=== PATIENT | female | born 1965 | race African-American/Black ===

== ENCOUNTER 2017-06-04 10:42 | Outpatient (CLI) | payer MEDICARE, MEDICAID ==
--- NOTE | 2017-06-04 12:59 | RAD ---
TWO VIEWS OF THE CHEST: COMPARISON: 12/31/06. HISTORY: Fall with chest pain. FINDINGS: Two views of the chest show normal sized cardiomediastinal silhouette. There is no evidence of conso lidation, mass, or pleural effusion. Degenerative changes are seen in the spine. IMPRESSION: No evidence of acute cardiopulmonary disease. POS: [facility]
--- NOTE | 2017-06-04 13:00 | RAD ---
THREE VIEWS LEFT SHOULDER: COMPARISON: None. HISTORY: Left shoulder pain after a fall. FINDINGS: Three views left shoulder show no evidence of acute fracture or dislocation. No degenerative change s are seen. No soft tissue swelling is present. IMPRESSION: Unremarkable exam. POS: [facility]
== END 2017-06-04 10:43 | disposition home or self-care (01) ==
LOC: RAD-FRANK 10:42
PROVIDERS: ATTEND Internal Medicine
DX: S49.92XA Unspecified injury of left shoulder and upper arm, initial encounter (principal); R07.81 Pleurodynia
CPT/HCPCS: 71020

== ENCOUNTER 2018-03-27 14:20 | Outpatient (CLI) | payer MEDICARE, OTHER ==
--- NOTE | 2018-03-27 14:39 | RAD ---
FOUR VIEWS OF THE RIGHT KNEE: Comparison: None. History: Right knee pain. FINDINGS: Four views of the right knee shows no evidence of acute fracture or dislocation. No degenerative johnson ges are seen. No knee effusion is present. IMPRESSION: No evidence of acute osseous abnormality. POS: [facility]
== END 2018-03-27 14:21 | disposition home or self-care (01) ==
LOC: RAD-FRANK 14:20
PROVIDERS: ATTEND Internal Medicine
DX: M25.561 Pain in right knee (principal)

== ENCOUNTER 2018-05-07 20:30 | Outpatient (CLI) | payer MEDICARE, MEDICAID | END 2018-05-07 20:31 | disposition home or self-care (01) | LOC: SLEEPLAB 20:30 | PROVIDERS: ATTEND Internal Medicine Cardiovascular Disease | DX: G47.33 Obstructive sleep apnea (adult) (pediatric) (principal); R53.83 Other fatigue; I10 Essential (primary) hypertension; E66.9 Obesity, unspecified; Z68.41 Body mass index [BMI] 40.0-44.9, adult | CPT/HCPCS: 95811 ==

== ENCOUNTER 2018-05-16 09:48 | Outpatient (CLI) | payer MEDICAID, MEDICARE, OTHER | END 2018-05-16 09:49 | disposition home or self-care (01) | LOC: BICMAMMO 09:48 | PROVIDERS: ATTEND Internal Medicine Medical Oncology | DX: Z08 Encounter for follow-up examination after completed treatment for malignant neoplasm (principal); Z85.3 Personal history of malignant neoplasm of breast; Z80.3 Family history of malignant neoplasm of breast | CPT/HCPCS: 77066; G0279 ==

== ENCOUNTER 2018-09-26 11:35 | Outpatient (CLI) | payer MEDICARE, MEDICAID ==
--- NOTE | 2018-09-26 13:43 | RAD ---
AP AND LATERAL VIEWS CHEST: 09/26/2018 HISTORY: Dyspnea. COMPARISON: 03/08/2015 FINDINGS: Two views of the chest are obtained and demonstrate mild pulmonary vascular congestion. No evidence of effusions, pneumonia, or pneumothorax is seen. IMPRESSION: Pulmonary vascular congestion; otherwise unremarkable two views chest. POS: [facility]
== END 2018-09-26 11:36 | disposition home or self-care (01) ==
LOC: RAD 11:35
PROVIDERS: ATTEND Internal Medicine Pulmonary Disease
DX: R06.00 Dyspnea, unspecified (principal); R09.89 Other specified symptoms and signs involving the circulatory and respiratory systems
CPT/HCPCS: 71046

== ENCOUNTER 2018-11-05 09:51 | Emergency (ER) | payer MEDICARE, MEDICAID ==
[2018-11-05 10:42] LABS: Bilirubin Negative (Negative); Blood, Urine Negative (Negative); Clarity CLEAR (Clear); Glucose, Urine (Dipstick) Negative (Negative); Leukocyte Small (Negative); Nitrite Negative (Negative); Protein, Urine (Dipstick) Negative (Neg-Trace); Specific Gravity, Urine 1.012 (1.002-1.036); Urobilinogen 0.2 mg/dL (0.2-1.0); pH, Urine 5.5 (5.0-9.0)
[2018-11-05 10:44] LABS: Bacteria/HPF Rare-Few HPF (None Seen); Hyaline Casts/LPF 0-3 HYALINE CAST LPF (0-3 Hyaline); Pathc Cast-AUWi Flag 0.87 (0-2.49); RBC/HPF 0-3 HPF (0-3)
== END 2018-11-05 13:30 | disposition home or self-care (01) ==
LOC: ERS 09:51
DX: R51 Headache (principal); E11.9 Type 2 diabetes mellitus without complications; E78.5 Hyperlipidemia, unspecified; I10 Essential (primary) hypertension; M19.90 Unspecified osteoarthritis, unspecified site; K21.9 Gastro-esophageal reflux disease without esophagitis; Z79.84 Long term (current) use of oral hypoglycemic drugs; Z87.891 Personal history of nicotine dependence; Z79.899 Other long term (current) drug therapy
CPT/HCPCS: 36415; 81003; 81015; 85652; 87086; 99284

== ENCOUNTER 2018-11-06 08:32 | Outpatient (CLI) | payer MEDICARE, MEDICAID ==
--- NOTE | 2018-11-06 10:48 | CT ---
CT ABDOMEN WITH AND WITHOUT IV CONTRAST UTILIZING A LIVER MASS PROTOCOL: INDICATIONS: Report of a liver mass, identified on an outside ultrasound that was unavailable for review. COMPARISON: Prior CT of the abdomen and pelvis, dated 03/22/2010, from [facility]. Prior CT abdomen and pelvis, dated 04/27/2019. CONTRAST: Isovue-370 70 mL. FINDINGS: There is a stable small hiatal hernia. There is a small calcified lymph node within the lower death surveys coder ior mediastinum, which is stable. The lung bases are otherwise clear. The gallbladder is surgically absent. No focal hepatic lesion is identified. Mildly prominent parapancreatic and portocaval lymph nodes are stable to the comparison in 2009. The parapancreatic lymph node on image 23 of series 5 measures 1.3 cm. The portocaval lymph node measur es 1.4 cm. The liver measures 19.6 cm in its greatest longitudinal dimension, which is slightly more prominent than seen on the 2009 examination. No focal pancreatic lesion, adrenal lesion, or splenic lesion is identified. No free fluid is eviden t. No definite acute osseous abnormality is identified. There is advanced disk degenerative disease at L5-S1 again noted. IMPRESSION: 1. No focal hepatic lesion identified. 2. Mildly prominent lymph nodes within the portocaval and parapancreatic region have been stable sin ce 2009 and are likely benign. 3. Cholecystectomy. 4. Worsening mild hepatomegaly. 5. Other chronic findings as above. POS: [facility]
== END 2018-11-06 08:33 | disposition home or self-care (01) ==
LOC: BICCT 08:32
PROVIDERS: ATTEND Internal Medicine Gastroenterology
DX: R16.0 Hepatomegaly, not elsewhere classified (principal); M51.37 Other intervertebral disc degeneration, lumbosacral region; K44.9 Diaphragmatic hernia without obstruction or gangrene; Z90.49 Acquired absence of other specified parts of digestive tract
CPT/HCPCS: 74170

== ENCOUNTER 2018-11-07 09:06 | Outpatient (CLI) | payer MEDICARE, MEDICAID ==
--- NOTE | 2018-11-07 10:39 | RAD ---
FOUR VIEWS RIGHT KNEE: Comparison: 03-27-18 History: Right knee pain. FINDINGS: Four views of the right knee shows no evidence of acute fracture or dislocation. No significant degen erative changes are seen. No knee effusion is seen. Patellar enthesophytes are again incidentally not ed. IMPRESSION: No evidence of acute osseous abnormality. POS: [facility]
== END 2018-11-07 09:07 | disposition home or self-care (01) ==
LOC: RAD-FRANK 09:06
PROVIDERS: ATTEND Internal Medicine
DX: M25.561 Pain in right knee (principal)

== ENCOUNTER 2018-12-01 02:10 | Emergency (ER) | payer MEDICARE, MEDICAID ==
[2018-12-01] MEDS ORDERED: Ondansetron ODT 4 MG TAB ONE (02:43)
== END 2018-12-01 03:18 | disposition home or self-care (01) ==
LOC: ERS 02:10
DX: F10.129 Alcohol abuse with intoxication, unspecified (principal); E11.9 Type 2 diabetes mellitus without complications; E78.5 Hyperlipidemia, unspecified; K21.9 Gastro-esophageal reflux disease without esophagitis; M19.90 Unspecified osteoarthritis, unspecified site; I10 Essential (primary) hypertension
CPT/HCPCS: 99284; Q0162

== ENCOUNTER 2019-06-18 10:12 | Outpatient (CLI) | payer MEDICARE, OTHER ==
--- NOTE | 2019-06-18 11:18 | RAD ---
PA AND LATERAL VIEWS CHEST: Date: 06/18/19 HISTORY: Shortness of breath. FINDINGS: Comparison made with exam of 09/26/18. The heart size is normal. The aorta is tortuous. The lungs are expanded without lobar consolidation, pneumothoraces, or pleural effusions. There are degenerative changes in the spine. IMPRESSION: No acute process. POS: [facility]
== END 2019-06-18 10:13 | disposition home or self-care (01) ==
LOC: RAD-FRANK 10:12
PROVIDERS: ATTEND Nurse Practitioner Family
DX: R06.02 Shortness of breath (principal); Z87.09 Personal history of other diseases of the respiratory system
CPT/HCPCS: 71046

== ENCOUNTER 2019-06-19 10:31 | Outpatient (CLI) | payer MEDICARE, OTHER ==
--- NOTE | 2019-06-19 11:20 | MMO ---
Bilateral MAMMO Bilat Diag DDI+JO. CLINICAL HISTORY: Patient is 54 years old and is seen for diagnostic exam. The patient has no family history of breast cancer. The patient has a history of malignant (generic) at age 51. VIEWS: The views performed were: bilateral craniocaudal with tomosynthesis; bilateral mediolateral oblique with tomosynthesis; and bilateral mediolateral with tomosynthesis. FILMS COMPARED: The present examination has been compared to a prior imaging study performed at [facility] on 05/16/2018. This study has been interpreted with the assistance of computer-aided detection. MAMMOGRAM FINDINGS: There are scattered fibroglandular densities. There are stable left sided post-operative changes. Right breast nodule is stable. There are no suspicious masses, suspicious calcifications, or new areas of architectural distortion. IMPRESSION: THERE IS NO MAMMOGRAPHIC EVIDENCE OF MALIGNANCY. A ROUTINE FOLLOW-UP MAMMOGRAM IN 1 YEAR IS RECOMMENDED. THE RESULTS OF THIS EXAM WERE SENT TO THE PATIENT. ACR BI-RADS Category 2 - Benign finding MAMMOGRAPHY NOTE: 1. A negative mammogram report should not delay a biopsy if a dominant of clinically suspicious mass is present. 2. Approximately 10% to 15% of breast cancers are not detected by mammography. 3. Adenosis and dense breasts may obscure an underlying neoplasm. Reported by: MELANY ELIZONDO MD Electonically Signed: [id number]
== END 2019-06-19 10:32 | disposition home or self-care (01) ==
LOC: BICMAMMO 10:31
PROVIDERS: ATTEND Internal Medicine Medical Oncology
DX: Z08 Encounter for follow-up examination after completed treatment for malignant neoplasm (principal); Z85.3 Personal history of malignant neoplasm of breast
CPT/HCPCS: 77066; G0279

== ENCOUNTER 2019-09-01 18:59 | Emergency (ER) | payer MEDICARE, MEDICAID ==
[2019-09-01] MEDS ORDERED: Morphine 4 MG/ML VIAL ONE (20:40)
[2019-09-01] MEDS ORDERED: Ondansetron PF 4 MG/2 ML Vial ONE (20:40)
[2019-09-01 20:42] LABS: ALT (SGPT) 10 U/L (8-55); AST (SGOT) 14 U/L (5-34); Albumin 3.7 g/dL (3.5-5.0); Alkaline Phosphatase 92 U/L (40-110); Anion Gap 14 mmol/L (10-20); BUN (Urea Nitrogen) 9 mg/dL (9.8-20.1); Bilirubin, Total 0.3 mg/dL (0.2-1.2); Calc. Creatinine Clearance 0 mL/min (70-130); Calcium 8.6 mg/dL (7.8-10.44); Carbon Dioxide 20 mmol/L (22-29); Chloride 110 mmol/L (98-107); Estimated GFR-MDRD 85; Globulin 3.5 g/dL (2.4-3.5); Glucose 123 mg/dL (70-105); Potassium 3.9 mmol/L (3.5-5.1); Protein, Total 7.2 g/dL (6.0-8.3); Sodium 140 mmol/L (136-145)
[2019-09-01 20:43] LABS: Bilirubin Negative (Negative); Blood, Urine Negative (Negative); Clarity Clear (Clear); Glucose, Urine (Dipstick) Normal (Negative); Leukocyte Negative Leu/uL (Negative); Nitrite Negative (Negative); Protein, Urine (Dipstick) Negative (Neg-Trace)
[2019-09-01] MEDS ORDERED: HYDROcodone/Acetaminophen 5/325 mg Tablet ONE (20:44)
[2019-09-01 21:31] LABS: Hemoglobin 10.5 g/dL (12.0-16.0); Mean Corpuscular HGB CONC 32.5 g/dL (32.0-36.0); Mean Corpuscular Hemoglobin 25.7 pg (27.0-31.0); Mean Corpuscular Volume 79.2 fL (78.0-98.0); RBC Distribution Width 13.5 % (11.5-14.5); Red Blood Cell (RBC) Count 4.07 mill/uL (4.20-5.40)
[2019-09-01 21:37] LABS: Band 8 % (5-11); Eosinophils 1 % (0-10); Lymphocytes 30 % (21-51); MDiff Complete? YES; Monocytes 5 % (0-10); Neutrophil 56 % (42-75); Platelet Count 193 thou/uL (130-400); White Blood Cell (WBC) Count 6.1 thou/uL (4.8-10.8)
== END 2019-09-01 21:51 | disposition home or self-care (01) ==
LOC: ERS 18:59
DX: E11.65 Type 2 diabetes mellitus with hyperglycemia (principal); M54.9 Dorsalgia, unspecified; K21.9 Gastro-esophageal reflux disease without esophagitis; E78.5 Hyperlipidemia, unspecified; E78.00 Pure hypercholesterolemia, unspecified; I10 Essential (primary) hypertension; M79.7 Fibromyalgia; M19.90 Unspecified osteoarthritis, unspecified site; Z87.891 Personal history of nicotine dependence
CPT/HCPCS: 36415; 36416; 80053; 81003; 85025; 96360; J2270; J2405

== ENCOUNTER 2020-09-06 21:09 | Emergency (ER) | payer MEDICARE, MEDICAID ==
[2020-09-07] MEDS ORDERED: Fluorescein Opthalmic Strip ONE (01:05)
[2020-09-07] MEDS ORDERED: Proparacaine 0.5% Opth 15 ML BOT ONE (01:05)
[2020-09-07] MEDS ORDERED: traMADol HCl 50 MG TAB ONE (02:09)
== END 2020-09-07 02:05 | disposition home or self-care (01) ==
LOC: ERS 21:09
DX: H10.502 Unspecified blepharoconjunctivitis, left eye (principal); E11.9 Type 2 diabetes mellitus without complications; K21.9 Gastro-esophageal reflux disease without esophagitis; E78.5 Hyperlipidemia, unspecified; E78.00 Pure hypercholesterolemia, unspecified; I10 Essential (primary) hypertension; M19.90 Unspecified osteoarthritis, unspecified site; Z87.891 Personal history of nicotine dependence
CPT/HCPCS: 99283

== ENCOUNTER 2020-10-16 19:31 | Emergency (ER) | payer MEDICARE, OTHER ==
[~2020-10-16 19:31] MED LIST: Iopamidol-370 76% 500 ML 1 ML ONE
[2020-10-16] MEDS ORDERED: Morphine 4 MG/ML VIAL ONE (19:54)
[2020-10-16 19:58] LABS: #Basophils 0.2 thou/uL (0.0-0.2); #Eosinphils 0.1 thou/uL (0.0-0.7); #Lymphocytes 1.4 thou/uL (1.20-3.40); #Monocytes 0.5 thou/uL (0.11-0.59); #Neutrophils 5.9 thou/uL (1.40-6.50); %Basophils 2.3 % (0.0-1.0); %Eosinophils 0.9 % (0.0-10.0); %Lymphocytes 17.5 % (21.0-51.0); %Monocytes 5.7 % (0.0-10.0); %Neutrophils 73.6 % (42.0-75.0); Hemoglobin 11.7 g/dL (12.0-16.0); Mean Corpuscular HGB CONC 32.6 g/dL (32.0-36.0); Mean Corpuscular Hemoglobin 26.1 pg (27.0-31.0); Mean Platelet Volume 7.2 fL (7.4-10.4); Platelet Count 203 thou/uL (130-400); RBC Distribution Width 13.7 % (11.5-14.5); Red Blood Cell (RBC) Count 4.48 mill/uL (4.20-5.40)
[2020-10-16 20:22] LABS: ALT (SGPT) 10 U/L (8-55); AST (SGOT) 14 U/L (5-34); Albumin 3.5 g/dL (3.5-5.0); Alkaline Phosphatase 100 U/L (40-110); Anion Gap 15 mmol/L (10-20); BUN (Urea Nitrogen) 7 mg/dL (9.8-20.1); Bilirubin, Total 0.4 mg/dL (0.2-1.2); Calc. Creatinine Clearance 0 mL/min (70-130); Calcium 8.1 mg/dL (7.8-10.44); Carbon Dioxide 21 mmol/L (22-29); Chloride 107 mmol/L (98-107); Globulin 3.6 g/dL (2.4-3.5); Glucose 235 mg/dL (70-105); Lipase 14 U/L (8-78); Protein, Total 7.1 g/dL (6.0-8.3); Sodium 140 mmol/L (136-145)
--- NOTE | 2020-10-16 20:26 | CT ---
CT ABDOMEN WITH CONTRAST CT PELVIS WITH CONTRAST: DATE: 10/16/2020 HISTORY: 55-year-old female with abdominal pain, nausea, vomiting, and diarrhea COMPARISON: 04/26/2016 TECHNIQUE: IV injection of iodinated contrast media: administered. Oral contrast media:Not administered FINDINGS: Again noted is the subcarinal and right inferior hilar calcified and noncalcified lymphadenopathy, on ly partially imaged, but unchanged. Lung bases are grossly clear. No pleural effusion. Clips in gallbladder fossa. Small hiatal hernia. Several mildly to moderately enlarged danilo hepatis lymph nodes, unchanged. Essentially normal abdominal aorta, kidneys, adrenals, pancreas, spleen, appendix, and urinary bladde r. No colonic diverticulitis, small bowel dilation, ascites, or pneumoperitoneum. No interval change overall of intra-abdominal and intrapelvic contents. Bilateral L5 pars interarticularis defects causing mild grade 1 anterolisthesis of L5 on S1. Severe d isc space narrowing with vacuum disc phenomenon at L5-S1. Bilateral high-grade L5-S1 neural foraminal stenosis, especially on the left.. IMPRESSION: 1) no acute findings 2) spondylosis at lumbosacral junction: Bilateral L5 spondylolysis causing mild grade 1 spondylolisth esis at L5-S1, high-grade bilateral neural foraminal stenosis, and severe degenerative disc disease at L5-S1. 3) small sliding hiatal hernia. 4) apparently benign lymphadenopathy of danilo hepatis, mediastinum, and right hilum.
[2020-10-16] MEDS ORDERED: diphenhydrAMINE 50 MG/ML VIAL ONE (20:29)
[2020-10-16] MEDS ORDERED: Metoclopramide HCl 10 MG/2 ML VIAL ONE ×2 (20:31→20:39)
--- NOTE | 2020-10-16 20:33 | RAD ---
CHEST ONE VIEW: 10/16/20 INDICATION: Nausea, vomiting, diarrhea and generalized weakness. COMPARISON: Two views of the chest dated 06/18/19. FINDINGS: No definite consolidation, pleural effusion or pneumothorax is evident. Heart size is upper limits of normal. No pneumothorax evident. No acute osseous abnormalities noted. IMPRESSION: No definite acute cardiopulmonary abnormality. POS: [facility]
[2020-10-16 20:37] LABS: Bilirubin Negative (Negative); Blood, Urine Negative (Negative); Clarity Clear (Clear); Glucose, Urine (Dipstick) Normal (Negative); Ketone, Urine Negative (Negative); Leukocyte Negative Leu/uL (Negative); Nitrite Negative (Negative); Protein, Urine (Dipstick) Negative (Neg-Trace); Specific Gravity, Urine 1.019 (1.002-1.036); Urobilinogen Normal mg/dL (Less than 2); pH, Urine 5.5 (5.0-9.0)
[2020-10-16] MEDS ORDERED: Potassium Chloride 20 MEQ TAB ONE (20:39)
== END 2020-10-16 22:15 | disposition home or self-care (01) ==
LOC: ERS 19:31
DX: R10.13 Epigastric pain (principal); R11.2 Nausea with vomiting, unspecified; R53.1 Weakness; E11.9 Type 2 diabetes mellitus without complications; K21.9 Gastro-esophageal reflux disease without esophagitis; E78.5 Hyperlipidemia, unspecified; E78.00 Pure hypercholesterolemia, unspecified; I10 Essential (primary) hypertension
CPT/HCPCS: 36415; 71045; 74177; 80053; 81003; 83690; 84484; 85025; 87086; 93005; 94760; 96365; 96375; J1200; J2270; J2765; Q9967

== ENCOUNTER 2021-01-07 09:48 | Outpatient (CLI) | payer MEDICARE, OTHER | END 2021-01-07 09:49 | disposition home or self-care (01) | LOC: BICMAMMO 09:48 | PROVIDERS: ATTEND Internal Medicine Medical Oncology | DX: C50.512 Malignant neoplasm of lower-outer quadrant of left female breast (principal) | CPT/HCPCS: 77066; G0279 ==

== ENCOUNTER 2021-01-10 05:09 | Emergency (ER) | payer MEDICARE, MEDICAID | END 2021-01-10 05:50 | disposition home or self-care (01) | LOC: ERS 05:09 | DX: K02.9 Dental caries, unspecified (principal); K08.89 Other specified disorders of teeth and supporting structures; I10 Essential (primary) hypertension; E11.9 Type 2 diabetes mellitus without complications; K21.9 Gastro-esophageal reflux disease without esophagitis; E78.5 Hyperlipidemia, unspecified; E78.00 Pure hypercholesterolemia, unspecified; D86.9 Sarcoidosis, unspecified; M19.90 Unspecified osteoarthritis, unspecified site | CPT/HCPCS: 99283 ==

== ENCOUNTER 2021-01-21 08:48 | Outpatient (CLI) | payer MEDICARE, MEDICAID ==
[2021-01-21 18:10] LABS: SARS-CoV-2 PCR by NAA Not Detected (NotDetected)
== END 2021-01-21 08:49 | disposition home or self-care (01) ==
LOC: LABBT 08:48
PROVIDERS: ATTEND Surgery
DX: Z01.812 Encounter for preprocedural laboratory examination (principal); Z20.822 Contact with and (suspected) exposure to COVID-19
CPT/HCPCS: U0003; U0005; 87635

== ENCOUNTER → 2021-01-26 | Day surgery (SDC) | payer MEDICARE, MEDICAID | LOC: SDC 13:03 | PROVIDERS: ATTEND Surgery | DX: K44.9 Diaphragmatic hernia without obstruction or gangrene (principal); K21.9 Gastro-esophageal reflux disease without esophagitis; I10 Essential (primary) hypertension; E11.9 Type 2 diabetes mellitus without complications; E78.5 Hyperlipidemia, unspecified; G89.29 Other chronic pain; M54.5 Low back pain; E66.9 Obesity, unspecified; Z68.41 Body mass index [BMI] 40.0-44.9, adult; Z79.82 Long term (current) use of aspirin; Z79.84 Long term (current) use of oral hypoglycemic drugs; Z79.810 Long term (current) use of selective estrogen receptor modulators (SERMs); Z79.899 Other long term (current) drug therapy; Z88.2 Allergy status to sulfonamides; Z88.6 Allergy status to analgesic agent; Z88.8 Allergy status to other drugs, medicaments and biological substances | CPT/HCPCS: 91010 ==

== ENCOUNTER 2021-02-28 11:05 | Outpatient (CLI) | payer MEDICARE, MEDICAID ==
[2021-02-28 19:45] LABS: SARS-CoV-2 PCR by NAA Not Detected (NotDetected)
== END 2021-02-28 11:06 | disposition home or self-care (01) ==
LOC: LABBT 11:05
PROVIDERS: ATTEND Surgery
DX: Z01.812 Encounter for preprocedural laboratory examination (principal); Z20.822 Contact with and (suspected) exposure to COVID-19
CPT/HCPCS: U0003; U0005

== ENCOUNTER 2021-04-23 10:03 | Emergency (ER) | payer MEDICARE, OTHER, MEDICAID ==
[2021-04-23] MEDS ORDERED: Acetaminophen 500 MG TAB ONE (11:20)
[2021-04-23 11:36] LABS: Bilirubin Negative (Negative); Blood, Urine Negative (Negative); Clarity Clear (Clear); Glucose, Urine (Dipstick) Normal (Negative); Ketone, Urine Negative (Negative); Leukocyte Negative Leu/uL (Negative); Nitrite Negative (Negative); Protein, Urine (Dipstick) 30 mg/dL (Neg-Trace); RBC/HPF 0-3 HPF (0-3); Specific Gravity, Urine 1.024 (1.002-1.036); Squamous Epithelial 0-3 HPF (0-3); Urobilinogen 3 mg/dL (Less than 2); WBC/HPF 0-3 HPF (0-3)
[2021-04-23 11:38] LABS: Bacteria/HPF 1+ HPF (None Seen)
[2021-04-23 16:32] LABS: SARS-CoV-2 PCR by NAA DETECTED (NotDetected)
== END 2021-04-23 12:42 | disposition home or self-care (01) ==
LOC: ERS 10:03
DX: U07.1 COVID-19 (principal); J12.82 Pneumonia due to coronavirus disease 2019; E11.9 Type 2 diabetes mellitus without complications; K21.9 Gastro-esophageal reflux disease without esophagitis; E78.5 Hyperlipidemia, unspecified; E78.00 Pure hypercholesterolemia, unspecified; I10 Essential (primary) hypertension; M19.90 Unspecified osteoarthritis, unspecified site; D86.9 Sarcoidosis, unspecified
CPT/HCPCS: 71045; U0003; U0005; 81003; 81015

== ENCOUNTER 2021-04-27 02:26 | Inpatient (IN) | payer MEDICARE, MEDICAID ==
[2021-04-27] MEDS ORDERED: Dexamethasone 10 MG/ML VIAL ONE (02:42)
[2021-04-27 03:04] LABS: #Lymphocytes 0.7 thou/uL (1.20-3.40); #Monocytes 0.3 thou/uL (0.11-0.59); #Neutrophils 6.3 thou/uL (1.40-6.50); %Basophils 0.1 % (0.0-1.0); %Lymphocytes 8.8 % (21.0-51.0); %Monocytes 4.5 % (0.0-10.0); %Neutrophils 86.5 % (42.0-75.0); Hemoglobin 11.1 g/dL (12.0-16.0); Mean Corpuscular HGB CONC 33.6 g/dL (32.0-36.0); Mean Corpuscular Hemoglobin 27.1 pg (27.0-31.0); Mean Corpuscular Volume 80.5 fL (78.0-98.0); Mean Platelet Volume 7.8 fL (7.4-10.4); Platelet Count 152 thou/uL (130-400); RBC Distribution Width 12.9 % (11.5-14.5); Red Blood Cell (RBC) Count 4.11 mill/uL (4.20-5.40); White Blood Cell (WBC) Count 7.3 thou/uL (4.8-10.8)
[2021-04-27] MEDS ORDERED: Acetaminophen 500 MG TAB ONE (03:06)
[2021-04-27 03:24] LABS: ALT (SGPT) 25 U/L (8-55); AST (SGOT) 34 U/L (5-34); Albumin 3.4 g/dL (3.5-5.0); Alkaline Phosphatase 112 U/L (40-110); Anion Gap 16 mmol/L (10-20); BUN (Urea Nitrogen) 8 mg/dL (9.8-20.1); Bilirubin, Total 0.8 mg/dL (0.2-1.2); Calc. Creatinine Clearance 0 mL/min (70-130); Calcium 7.8 mg/dL (7.8-10.44); Carbon Dioxide 21 mmol/L (22-29); Chloride 99 mmol/L (98-107); Globulin 3.6 g/dL (2.4-3.5); Glucose 292 mg/dL (70-105); Lipase 26 U/L (8-78); Potassium 3.4 mmol/L (3.5-5.1); Sodium 133 mmol/L (136-145)
[2021-04-27] MEDS ORDERED: Ketorolac Tromethamine 30 MG/ML VIAL ONE (03:59)
[2021-04-27] MEDS ORDERED: Ondansetron PF 4 MG/2 ML Vial IVP PRN (09:15)
[2021-04-27] MEDS ORDERED: Enoxaparin Sodium 40 MG/0.4 ML SYRINGE SC SCH (09:15)
[2021-04-27] MEDS ORDERED: Loperamide HCl 2 MG CAP PO PRN ×2 (09:15)
[2021-04-27] MEDS ORDERED: Ondansetron ODT 4 MG TAB PO PRN (09:15)
[2021-04-27] MEDS ORDERED: Acetaminophen 650 MG Suppository PR PRN (09:15)
[2021-04-27] MEDS ORDERED: Melatonin 3 MG TAB PO PRN (09:24)
[2021-04-27] MEDS ORDERED: Dextrose 5% in Water 1,000 ML IV PRN (09:26)
[2021-04-27] MEDS ORDERED: HumaLOG 300 UNITS/3 ML VIAL SC PRN (09:26)
[2021-04-27] MEDS ORDERED: Dextrose 50% Abboject 50 ML SYRINGE SLOW IVP PRN (09:26)
[2021-04-27] MEDS ORDERED: Albuterol Sulfate 2.5 mg/3 ml Neb EZPAP PRN (09:30)
[2021-04-27 10:14] LABS: Magnesium 1.7 mg/dL (1.6-2.6)
[2021-04-27] MEDS ORDERED: REMDESIVIR 200 MG in Sodium Chloride 0.9% 250 ML 210 ML IV SCH (11:00)
[2021-04-27] MEDS ORDERED: Potassium Chloride 20 MEQ TAB ONE (11:04)
[2021-04-27] MEDS ORDERED: Enoxaparin Sodium 40 MG/0.4 ML SYRINGE ONE (11:05)
[2021-04-27] MEDS: Potassium Chloride 20 MEQ TAB PO SCH (11:09)
[2021-04-27] MEDS ORDERED: Loperamide HCl 2 MG CAP ONE (16:09)
[2021-04-27] MEDS ORDERED: Acetaminophen 325 MG TAB ONE (16:09)
[2021-04-27] MEDS: Acetaminophen 325 MG TAB PO PRN ×2 (16:18→20:38)
[2021-04-27] MEDS ORDERED: HumaLOG 300 UNITS/3 ML VIAL ONE (17:02)
[2021-04-27] MEDS: HumaLOG 300 UNITS/3 ML VIAL SC PRN (17:11)
[2021-04-27] MEDS ORDERED: Non-Formulary Item 1 EACH (Albuterol Sulfate [Proair Digihaler] 90 MCG Aer.Pw.Bas) INH PRN (18:31)
[2021-04-27] MEDS: Famotidine 20 MG TAB PO SCH (20:38)
[2021-04-27] MEDS: Guaifenesin DM 100-10/5 ML UDCUP PO PRN (20:39)
[2021-04-27] MEDS ORDERED: Albuterol 200 PUFF (6.7GM INHALER) INH PRN (20:45)
[2021-04-28] MEDS ORDERED: Ibuprofen 200 MG TAB PO PRN (00:13)
[2021-04-28] MEDS: traMADol HCl 50 MG TAB PO PRN ×2 (00:31→10:14)
[2021-04-28] MEDS: Acetaminophen 325 MG TAB PO PRN (00:32)
[2021-04-28] MEDS: HumaLOG 300 UNITS/3 ML VIAL SC PRN (05:35)
[2021-04-28 06:12] LABS: #Monocytes 0.4 thou/uL (0.11-0.59); #Neutrophils 8.6 thou/uL (1.40-6.50); %Eosinophils 0.1 % (0.0-10.0); %Lymphocytes 9.7 % (21.0-51.0); %Monocytes 3.9 % (0.0-10.0); %Neutrophils 86.4 % (42.0-75.0); Hemoglobin 11.5 g/dL (12.0-16.0); Mean Corpuscular HGB CONC 31.7 g/dL (32.0-36.0); Mean Corpuscular Hemoglobin 25.5 pg (27.0-31.0); Mean Corpuscular Volume 80.7 fL (78.0-98.0); Mean Platelet Volume 8.6 fL (7.4-10.4); Platelet Count 195 thou/uL (130-400); Red Blood Cell (RBC) Count 4.51 mill/uL (4.20-5.40); White Blood Cell (WBC) Count 9.9 thou/uL (4.8-10.8)
[2021-04-28 06:32] LABS: ALT (SGPT) 28 U/L (8-55); AST (SGOT) 34 U/L (5-34); Albumin 3.3 g/dL (3.5-5.0); Alkaline Phosphatase 98 U/L (40-110); Anion Gap 11 mmol/L (10-20); BUN (Urea Nitrogen) 14 mg/dL (9.8-20.1); Bilirubin, Total 0.4 mg/dL (0.2-1.2); Calc. Creatinine Clearance 129 mL/min (70-130); Calcium 8.8 mg/dL (7.8-10.44); Carbon Dioxide 23 mmol/L (22-29); Chloride 105 mmol/L (98-107); Globulin 4.2 g/dL (2.4-3.5); Glucose 303 mg/dL (70-105); Potassium 4.1 mmol/L (3.5-5.1); Protein, Total 7.5 g/dL (6.0-8.3); Sodium 135 mmol/L (136-145)
[2021-04-28] MEDS ORDERED: Dexamethasone 4 MG TAB PO SCH (08:00)
[2021-04-28] MEDS ORDERED: Insulin Regular 300 UNITS/3 ML VIAL SC PRN ×2 (08:42→23:12)
[2021-04-28] MEDS ORDERED: Albuterol 200 PUFF (6.7GM INHALER) INH PRN (08:53)
[2021-04-28] MEDS ORDERED: Amlodipine 10 MG TAB PO SCH (09:00)
[2021-04-28 09:37] LABS: Actual Bicarbonate (HCO3a) 23.9 mEq/L (22-28); Base Excess (BEa) 0.4 mEq/L (-2.0 to +3.0); Calcium, Ionized (arterial) 1.14 mmol/L (1.12-1.30); Carboxyhemoglobin (COHb) 0.1 gm% (0.0-3.0); Hemoglobin (Hb) 12.8 g/dL (12.0-16.0); Potassium - ABG Lab 4.07 mmol/L (3.70-5.30); pH, Arterial 7.45 (7.35-7.45)
[2021-04-28] MEDS ORDERED: Magnesium Sulfate 2 GM in Sodium Chloride 0.9% 100 ML IVPB SCH (09:45)
[2021-04-28 09:50] LABS: O2 Tension (PaO2), arterial 47.5 mmHg (80.0-100.0); Puncture Site RRA
[2021-04-28] MEDS ORDERED: ALPRAZolam 0.25 MG TAB PO SCH (10:00)
[2021-04-28] MEDS ORDERED: Magnesium 2 GM/50 ML 2 GM in Premix Bag 1 BAG IVPB SCH (10:00)
[2021-04-28] MEDS: Famotidine 20 MG TAB PO SCH ×2 (10:04→20:14)
[2021-04-28] MEDS: Aspirin 81 mg Enteric Coated Tablet PO SCH (10:04)
[2021-04-28] MEDS: Enoxaparin Sodium 40 MG/0.4 ML SYRINGE SC SCH (10:05)
[2021-04-28] MEDS: Dexamethasone 10 MG/ML VIAL SLOW IVP SCH (10:05)
[2021-04-28] MEDS: Lantus 1000 UNITS/10 ML VIAL SC SCH (10:06)
[2021-04-28] MEDS: REMDESIVIR 100 MG in Sodium Chloride 0.9% 250 ML 230 ML IV SCH (10:06)
[2021-04-28] MEDS: Potassium Chloride 20 MEQ TAB PO SCH (10:07)
[2021-04-28] MEDS: Guaifenesin DM 100-10/5 ML UDCUP PO PRN (10:07)
[2021-04-28] MEDS: Albuterol 200 PUFF (6.7GM INHALER) INH SCH ×3 (13:00→20:23)
[2021-04-28] MEDS ORDERED: Propofol 1,000 MG/100 ML VIAL IV ONE (14:13)
[2021-04-28 16:14] LABS: Base Excess (BEa) -3.4 mEq/L (-2.0 to +3.0); CO2 Tension 40.8 mmHg (35.0-45.0); Calcium, Ionized (arterial) 1.14 mmol/L (1.12-1.30); Hemoglobin (Hb) 12.4 g/dL (12.0-16.0); O2 Tension (PaO2), arterial 82.2 mmHg (80.0-100.0); Potassium - ABG Lab 5.23 mmol/L (3.70-5.30); pH, Arterial 7.35 (7.35-7.45)
[2021-04-28 16:19] LABS: Puncture Site LRA
[2021-04-28] MEDS: Sodium Chloride 0.65% Nasal 44 ML BOT EA NARE SCH ×2 (16:21→20:52)
[2021-04-28] MEDS ORDERED: Lorazepam 2 MG/ML VIAL ONE ×2 (16:39→21:32)
[2021-04-28] MEDS ORDERED: Vecuronium 10 MG VIAL ONE (16:51)
[2021-04-28] MEDS ORDERED: fentaNYL Citrate/PF 2,000 MCG in Sodium Chloride 0.9% 60 ML IV PRN (16:54)
[2021-04-28] MEDS ORDERED: Propofol 1,000 MG/100 ML VIAL IV SCH (17:00)
[2021-04-28] MEDS ORDERED: Norepinephrine 8 MG/0.9% NS 250 ML IVPB SCH (18:30)
[2021-04-28] MEDS ORDERED: Fentanyl CADD 100 ML ONE (19:33)
[2021-04-28] MEDS: Fentanyl CADD 100 ML IV SCH (20:05)
[2021-04-28] MEDS: Propofol 1,000 MG/100 ML VIAL IV PRN ×2 (20:14→23:52)
[2021-04-28] MEDS: Vecuronium 10 MG VIAL IVP PRN ×2 (21:37→22:27)
[2021-04-28] MEDS: Sterile Water 10 ML VIAL IVP PRN ×2 (21:37→22:27)
[2021-04-28] MEDS ORDERED: Morphine 2 MG/ML VIAL SLOW IVP PRN (21:45)
[2021-04-28] MEDS ORDERED: Fentanyl BOLUS 250 ML IVPB PRN (21:45)
[2021-04-28] MEDS ORDERED: DISCONTINUE PREVIOUS NARCOTIC PAIN MEDICATIONS AND BENZODIAZEPINES FS SCH (21:45)
[2021-04-28] MEDS ORDERED: Propofol 1,000 MG/100 ML VIAL IV PRN (21:45)
[2021-04-28] MEDS ORDERED: Propofol BOLUS 1,000 MG/100 ML VIAL IV PRN (21:45)
[2021-04-28] MEDS ORDERED: Electrolyte Replacement Protocol 1 EACH IVPB ONE (23:12)
[2021-04-28] MEDS ORDERED: Bisacodyl 10 MG SUPP PR PRN (23:12)
[2021-04-28] MEDS ORDERED: Electrolyte Replacement Protocol FS PRN (23:30)
[2021-04-28] MEDS ORDERED: Electrolyte Replacement Protocol 1 EACH FS SCH (23:30)
[2021-04-29] MEDS: Insulin Regular 300 UNITS/3 ML VIAL SC PRN ×6 (01:19→20:05)
[2021-04-29] MEDS: Propofol 1,000 MG/100 ML VIAL IV PRN ×7 (02:41→22:04)
[2021-04-29] MEDS: Vecuronium 10 MG VIAL IVP PRN ×3 (03:29→20:29)
[2021-04-29] MEDS: Sterile Water 10 ML VIAL IVP PRN ×2 (03:29→05:49)
[2021-04-29 04:03] LABS: #Lymphocytes 0.9 thou/uL (1.20-3.40); #Monocytes 0.7 thou/uL (0.11-0.59); #Neutrophils 11.1 thou/uL (1.40-6.50); %Basophils 0.1 % (0.0-1.0); %Eosinophils 0.1 % (0.0-10.0); %Lymphocytes 7.3 % (21.0-51.0); %Monocytes 5.6 % (0.0-10.0); %Neutrophils 86.9 % (42.0-75.0); Hemoglobin 11.1 g/dL (12.0-16.0); Mean Corpuscular HGB CONC 32.4 g/dL (32.0-36.0); Mean Corpuscular Hemoglobin 26.7 pg (27.0-31.0); Mean Corpuscular Volume 82.5 fL (78.0-98.0); Mean Platelet Volume 8.2 fL (7.4-10.4); Platelet Count 278 thou/uL (130-400); RBC Distribution Width 13.1 % (11.5-14.5); Red Blood Cell (RBC) Count 4.14 mill/uL (4.20-5.40); White Blood Cell (WBC) Count 12.8 thou/uL (4.8-10.8)
[2021-04-29 04:13] LABS: CRP (Inflammatory) 14.72 mg/dL (= or < 0.5); Magnesium 2.6 mg/dL (1.6-2.6)
[2021-04-29 04:17] LABS: ALT (SGPT) 25 U/L (8-55); AST (SGOT) 19 U/L (5-34); Albumin 3.2 g/dL (3.5-5.0); Alkaline Phosphatase 94 U/L (40-110); Anion Gap 16 mmol/L (10-20); BUN (Urea Nitrogen) 18 mg/dL (9.8-20.1); Bilirubin, Total 0.4 mg/dL (0.2-1.2); Calc. Creatinine Clearance 117 mL/min (70-130); Calcium 8.9 mg/dL (7.8-10.44); Carbon Dioxide 22 mmol/L (22-29); Chloride 106 mmol/L (98-107); Globulin 4.2 g/dL (2.4-3.5); Glucose 379 mg/dL (70-105); Phosphorus 3.7 mg/dL (2.3-4.7); Potassium 4.7 mmol/L (3.5-5.1); Protein, Total 7.4 g/dL (6.0-8.3); Sodium 139 mmol/L (136-145)
[2021-04-29] MEDS ORDERED: Fentanyl CADD 100 ML ONE ×2 (07:02→18:48)
[2021-04-29] MEDS: Fentanyl CADD 100 ML IV SCH ×2 (07:03→18:54)
[2021-04-29] MEDS: Lantus 1000 UNITS/10 ML VIAL SC SCH ×2 (08:22→09:19)
[2021-04-29] MEDS: Albuterol 200 PUFF (6.7GM INHALER) INH SCH ×4 (08:33→19:38)
[2021-04-29 08:47] LABS: Actual Bicarbonate (HCO3a) 24.1 mEq/L (22-28); Base Excess (BEa) -1.1 mEq/L (-2.0 to +3.0); CO2 Tension 42.1 mmHg (35.0-45.0); Calcium, Ionized (arterial) 1.19 mmol/L (1.12-1.30); Carboxyhemoglobin (COHb) 0.3 gm% (0.0-3.0); Hemoglobin (Hb) 11.9 g/dL (12.0-16.0); O2 Tension (PaO2), arterial 102.2 mmHg (80.0-100.0); Potassium - ABG Lab 4.49 mmol/L (3.70-5.30); pH, Arterial 7.38 (7.35-7.45)
[2021-04-29] MEDS: Aspirin 81 mg Enteric Coated Tablet PO SCH (09:18)
[2021-04-29] MEDS: Enoxaparin Sodium 40 MG/0.4 ML SYRINGE SC SCH (09:18)
[2021-04-29] MEDS: Famotidine/PF 20 mg/2ml Vial SLOW IVP SCH ×2 (09:18→20:29)
[2021-04-29] MEDS: REMDESIVIR 100 MG in Sodium Chloride 0.9% 250 ML 230 ML IV SCH (09:18)
[2021-04-29] MEDS: Dexamethasone 10 MG/ML VIAL SLOW IVP SCH (09:18)
[2021-04-29 11:00] LABS: ALV-art Gradient 344.275 mmHg (0-20); Puncture Site LRA
[2021-04-29] MEDS ORDERED: BARICITINIB 2 MG TAB PO SCH (17:45)
[2021-04-30] MEDS: Propofol 1,000 MG/100 ML VIAL IV PRN ×6 (00:40→20:12)
[2021-04-30] MEDS: Vecuronium 10 MG VIAL IVP PRN ×4 (00:40→10:05)
[2021-04-30] MEDS: Insulin Regular 300 UNITS/3 ML VIAL SC PRN ×6 (01:09→21:08)
[2021-04-30] MEDS: Sterile Water 10 ML VIAL IVP PRN ×2 (03:45→07:01)
[2021-04-30 05:13] LABS: Band 20 % (5-11); Hemoglobin 10.9 g/dL (12.0-16.0); Lymphocytes 4 % (21-51); MDiff Complete? YES; Mean Corpuscular HGB CONC 31.1 g/dL (32.0-36.0); Mean Corpuscular Hemoglobin 25.9 pg (27.0-31.0); Mean Corpuscular Volume 83.3 fL (78.0-98.0); Mean Platelet Volume 7.9 fL (7.4-10.4); Metamyelocyte 2 % (0-0); Monocytes 2 % (0-10); Neutrophil 72 % (42-75); Platelet Count 255 thou/uL (130-400); Platelet Morphology Comment Appears Adequate; RBC Distribution Width 13.3 % (11.5-14.5); Red Blood Cell (RBC) Count 4.22 mill/uL (4.20-5.40); White Blood Cell (WBC) Count 5.5 thou/uL (4.8-10.8)
[2021-04-30 05:15] LABS: ALT (SGPT) 20 U/L (8-55); AST (SGOT) 15 U/L (5-34); Albumin 3.2 g/dL (3.5-5.0); Alkaline Phosphatase 92 U/L (40-110); Anion Gap 13 mmol/L (10-20); BUN (Urea Nitrogen) 13 mg/dL (9.8-20.1); Bilirubin, Total 0.3 mg/dL (0.2-1.2); Calc. Creatinine Clearance 148 mL/min (70-130); Carbon Dioxide 25 mmol/L (22-29); Chloride 107 mmol/L (98-107); Globulin 4.1 g/dL (2.4-3.5); Glucose 287 mg/dL (70-105); Potassium 4.2 mmol/L (3.5-5.1); Protein, Total 7.3 g/dL (6.0-8.3); Sodium 141 mmol/L (136-145)
[2021-04-30] MEDS ORDERED: Fentanyl CADD 100 ML ONE ×2 (07:58→21:50)
[2021-04-30] MEDS: Fentanyl CADD 100 ML IV SCH ×2 (08:17→21:54)
[2021-04-30] MEDS: Albuterol 200 PUFF (6.7GM INHALER) INH SCH ×4 (08:25→19:28)
[2021-04-30] MEDS: Lantus 1000 UNITS/10 ML VIAL SC SCH (08:30)
[2021-04-30] MEDS: Famotidine/PF 20 mg/2ml Vial SLOW IVP SCH ×2 (09:10→20:12)
[2021-04-30] MEDS: Enoxaparin Sodium 40 MG/0.4 ML SYRINGE SC SCH (09:11)
[2021-04-30] MEDS: REMDESIVIR 100 MG in Sodium Chloride 0.9% 250 ML 230 ML IV SCH (09:11)
[2021-04-30] MEDS: Aspirin 81 mg Enteric Coated Tablet PO SCH (09:11)
[2021-04-30] MEDS: Dexamethasone 10 MG/ML VIAL SLOW IVP SCH (09:11)
[2021-04-30] MEDS: BARICITINIB 2 MG TAB PO SCH (13:46)
[2021-04-30] MEDS: Enoxaparin Sodium 60 MG/0.6 ML SYRINGE SC SCH (20:11)
[2021-05-01] MEDS: Insulin Regular 300 UNITS/3 ML VIAL SC PRN ×5 (00:59→21:17)
[2021-05-01] MEDS: Propofol 1,000 MG/100 ML VIAL IV PRN ×4 (01:07→19:09)
[2021-05-01 05:00] LABS: ALT (SGPT) 19 U/L (8-55); AST (SGOT) 20 U/L (5-34); Alkaline Phosphatase 83 U/L (40-110); Anion Gap 10 mmol/L (10-20); BUN (Urea Nitrogen) 16 mg/dL (9.8-20.1); Bilirubin, Total 0.3 mg/dL (0.2-1.2); Calc. Creatinine Clearance 148 mL/min (70-130); Carbon Dioxide 26 mmol/L (22-29); Chloride 108 mmol/L (98-107); Globulin 3.9 g/dL (2.4-3.5); Glucose 217 mg/dL (70-105); Protein, Total 6.9 g/dL (6.0-8.3); Sodium 140 mmol/L (136-145)
[2021-05-01 05:27] LABS: Band 6 % (5-11); Hemoglobin 10.7 g/dL (12.0-16.0); Lymphocytes 23 % (21-51); MDiff Complete? YES; Mean Corpuscular HGB CONC 33.1 g/dL (32.0-36.0); Mean Corpuscular Hemoglobin 27.4 pg (27.0-31.0); Mean Corpuscular Volume 82.6 fL (78.0-98.0); Mean Platelet Volume 7.9 fL (7.4-10.4); Monocytes 5 % (0-10); Neutrophil 65 % (42-75); Platelet Count 253 thou/uL (130-400); Platelet Morphology Comment Appears Adequate; RBC Distribution Width 13.2 % (11.5-14.5); RBC Morphology Normal; Reactive Lymphocytes 1 % (0-10); Red Blood Cell (RBC) Count 3.93 mill/uL (4.20-5.40); White Blood Cell (WBC) Count 9.1 thou/uL (4.8-10.8)
[2021-05-01] MEDS: Albuterol 200 PUFF (6.7GM INHALER) INH SCH ×4 (08:05→19:23)
[2021-05-01] MEDS ORDERED: Fentanyl CADD 100 ML ONE (08:55)
[2021-05-01] MEDS: Fentanyl CADD 100 ML IV SCH (08:58)
[2021-05-01] MEDS: Dexamethasone 10 MG/ML VIAL SLOW IVP SCH (08:59)
[2021-05-01] MEDS: Aspirin 81 mg Enteric Coated Tablet PO SCH (08:59)
[2021-05-01] MEDS: Lantus 1000 UNITS/10 ML VIAL SC SCH (08:59)
[2021-05-01] MEDS: Enoxaparin Sodium 60 MG/0.6 ML SYRINGE SC SCH ×2 (08:59→20:59)
[2021-05-01] MEDS: Famotidine/PF 20 mg/2ml Vial SLOW IVP SCH ×2 (08:59→20:59)
[2021-05-01] MEDS: BARICITINIB 2 MG TAB PO SCH (09:49)
[2021-05-01] MEDS: REMDESIVIR 100 MG in Sodium Chloride 0.9% 250 ML 230 ML IV SCH (09:51)
[2021-05-02] MEDS ORDERED: Fentanyl CADD 100 ML ONE (00:39)
[2021-05-02] MEDS: Insulin Regular 300 UNITS/3 ML VIAL SC PRN ×4 (00:48→20:57)
[2021-05-02] MEDS: Fentanyl CADD 100 ML IV SCH (00:48)
[2021-05-02] MEDS: Propofol 1,000 MG/100 ML VIAL IV PRN ×4 (00:48→19:37)
[2021-05-02 05:18] LABS: ALT (SGPT) 21 U/L (8-55); AST (SGOT) 16 U/L (5-34); Albumin 2.9 g/dL (3.5-5.0); Alkaline Phosphatase 86 U/L (40-110); Anion Gap 10 mmol/L (10-20); BUN (Urea Nitrogen) 19 mg/dL (9.8-20.1); Bilirubin, Total 0.3 mg/dL (0.2-1.2); Calc. Creatinine Clearance 151 mL/min (70-130); Calcium 8.9 mg/dL (7.8-10.44); Carbon Dioxide 29 mmol/L (22-29); Chloride 108 mmol/L (98-107); Globulin 3.8 g/dL (2.4-3.5); Glucose 133 mg/dL (70-105); Potassium 3.7 mmol/L (3.5-5.1); Protein, Total 6.7 g/dL (6.0-8.3); Sodium 143 mmol/L (136-145)
[2021-05-02 05:23] LABS: Band 1 % (5-11); Hemoglobin 10.5 g/dL (12.0-16.0); Hypochromia SLIGHT = 6-15 cells (100X) (0-5/hpf); Lymphocytes 34 % (21-51); MDiff Complete? YES; Mean Corpuscular HGB CONC 30.3 g/dL (32.0-36.0); Mean Corpuscular Hemoglobin 24.9 pg (27.0-31.0); Mean Corpuscular Volume 82.3 fL (78.0-98.0); Mean Platelet Volume 7.6 fL (7.4-10.4); Monocytes 3 % (0-10); Neutrophil 62 % (42-75); Nucleated RBC 1 % (0); Platelet Count 282 thou/uL (130-400); Platelet Morphology Comment Appears Adequate; RBC Distribution Width 13.3 % (11.5-14.5); Red Blood Cell (RBC) Count 4.19 mill/uL (4.20-5.40); White Blood Cell (WBC) Count 8.3 thou/uL (4.8-10.8)
[2021-05-02] MEDS: Albuterol 200 PUFF (6.7GM INHALER) INH SCH ×4 (08:14→19:09)
[2021-05-02] MEDS: BARICITINIB 2 MG TAB PO SCH (08:54)
[2021-05-02] MEDS: Enoxaparin Sodium 60 MG/0.6 ML SYRINGE SC SCH ×2 (08:54→20:48)
[2021-05-02] MEDS: Dexamethasone 10 MG/ML VIAL SLOW IVP SCH (08:54)
[2021-05-02] MEDS: Aspirin Chewable 81 MG TAB PO SCH (08:54)
[2021-05-02] MEDS: Famotidine/PF 20 mg/2ml Vial SLOW IVP SCH ×2 (08:54→20:48)
[2021-05-02] MEDS: Lantus 1000 UNITS/10 ML VIAL SC SCH (08:55)
[2021-05-02 11:54] LABS: Actual Bicarbonate (HCO3a) 28.9 mEq/L (22-28); Base Excess (BEa) 4.6 mEq/L (-2.0 to +3.0); CO2 Tension 41.9 mmHg (35.0-45.0); Calcium, Ionized (arterial) 1.17 mmol/L (1.12-1.30); Carboxyhemoglobin (COHb) 0.2 gm% (0.0-3.0); O2 Tension (PaO2), arterial 69.2 mmHg (80.0-100.0); Potassium - ABG Lab 4.15 mmol/L (3.70-5.30); pH, Arterial 7.46 (7.35-7.45)
[2021-05-02 11:57] LABS: ALV-art Gradient 163.625 mmHg (0-20); Puncture Site LRA
[2021-05-02] MEDS ORDERED: Polyethylene Glycol 3350 17 GM Packet PO PRN (12:31)
[2021-05-03] MEDS: Propofol 1,000 MG/100 ML VIAL IV PRN ×5 (00:54→23:34)
[2021-05-03] MEDS ORDERED: Fentanyl CADD 100 ML ONE (02:53)
[2021-05-03] MEDS: Fentanyl CADD 100 ML IV SCH (02:56)
[2021-05-03 05:39] LABS: Phosphorus 3.1 mg/dL (2.3-4.7)
[2021-05-03 05:47] LABS: CRP (Inflammatory) 2.59 mg/dL (= or < 0.5); Magnesium 1.9 mg/dL (1.6-2.6)
[2021-05-03] MEDS ORDERED: Magnesium 2 GM/50 ML 2 GM in Premix Bag 1 BAG IVPB SCH (06:30)
[2021-05-03] MEDS: Albuterol 200 PUFF (6.7GM INHALER) INH SCH ×4 (08:15→20:04)
[2021-05-03 08:43] LABS: Actual Bicarbonate (HCO3a) 27.9 mEq/L (22-28); Base Excess (BEa) 4.2 mEq/L (-2.0 to +3.0); CO2 Tension 38.4 mmHg (35.0-45.0); Calcium, Ionized (arterial) 1.19 mmol/L (1.12-1.30); Carboxyhemoglobin (COHb) 0.5 gm% (0.0-3.0); Hemoglobin (Hb) 11.3 g/dL (12.0-16.0); O2 Tension (PaO2), arterial 66.6 mmHg (80.0-100.0); pH, Arterial 7.48 (7.35-7.45)
[2021-05-03 08:45] LABS: Puncture Site LRA
[2021-05-03] MEDS: Aspirin Chewable 81 MG TAB PO SCH (08:47)
[2021-05-03] MEDS: BARICITINIB 2 MG TAB PO SCH (08:47)
[2021-05-03] MEDS: Dexamethasone 10 MG/ML VIAL SLOW IVP SCH (08:48)
[2021-05-03] MEDS: Enoxaparin Sodium 60 MG/0.6 ML SYRINGE SC SCH ×2 (08:48→21:16)
[2021-05-03] MEDS: Lantus 1000 UNITS/10 ML VIAL SC SCH (08:49)
[2021-05-03] MEDS ORDERED: Famotidine/PF 20 mg/2ml Vial ONE (08:51)
[2021-05-03] MEDS: Famotidine/PF 20 mg/2ml Vial SLOW IVP SCH ×2 (08:51→21:16)
[2021-05-03] MEDS ORDERED: Furosemide 40 MG/4 ML VIAL SLOW IVP SCH (11:15)
[2021-05-03] MEDS: Polyethylene Glycol 3350 17 GM Packet PO SCH ×2 (12:07→23:00)
[2021-05-03] MEDS: Insulin Regular 300 UNITS/3 ML VIAL SC PRN ×3 (12:24→21:37)
[2021-05-03 14:23] LABS: ALT (SGPT) 24 U/L (8-55); AST (SGOT) 21 U/L (5-34); Albumin 3.2 g/dL (3.5-5.0); Alkaline Phosphatase 106 U/L (40-110); Anion Gap 11 mmol/L (10-20); BUN (Urea Nitrogen) 23 mg/dL (9.8-20.1); Bilirubin, Total 0.5 mg/dL (0.2-1.2); Calc. Creatinine Clearance 124 mL/min (70-130); Carbon Dioxide 29 mmol/L (22-29); Chloride 101 mmol/L (98-107); Globulin 4.1 g/dL (2.4-3.5); Glucose 408 mg/dL (70-105); Potassium 4.1 mmol/L (3.5-5.1); Protein, Total 7.3 g/dL (6.0-8.3); Sodium 137 mmol/L (136-145)
[2021-05-04] MEDS: Insulin Regular 300 UNITS/3 ML VIAL SC PRN ×6 (00:25→20:24)
[2021-05-04] MEDS: Propofol 1,000 MG/100 ML VIAL IV PRN ×3 (04:21→16:51)
[2021-05-04 04:34] LABS: Phosphorus 2.8 mg/dL (2.3-4.7)
[2021-05-04 04:37] LABS: ALT (SGPT) 19 U/L (8-55); ALT (SGPT) 20 U/L (8-55); AST (SGOT) 11 U/L (5-34); Albumin 2.8 g/dL (3.5-5.0); Alkaline Phosphatase 87 U/L (40-110); Alkaline Phosphatase 92 U/L (40-110); Anion Gap 12 mmol/L (10-20); BUN (Urea Nitrogen) 20 mg/dL (9.8-20.1); Bilirubin, Direct 0.2 mg/dL (0.1-0.3); Bilirubin, Total 0.4 mg/dL (0.2-1.2); CRP (Inflammatory) 4.65 mg/dL (= or < 0.5); Calc. Creatinine Clearance 154 mL/min (70-130); Carbon Dioxide 29 mmol/L (22-29); Chloride 104 mmol/L (98-107); Globulin 3.8 g/dL (2.4-3.5); Glucose 161 mg/dL (70-105); Magnesium 2.1 mg/dL (1.6-2.6); Potassium 3.6 mmol/L (3.5-5.1); Protein, Total 6.6 g/dL (6.0-8.3); Protein, Total 6.7 g/dL (6.0-8.3); Sodium 141 mmol/L (136-145)
[2021-05-04 04:39] LABS: Band 1 % (5-11); Hemoglobin 10.3 g/dL (12.0-16.0); Hypochromia SLIGHT = 6-15 cells (100X) (0-5/hpf); Lymphocytes 26 % (21-51); MDiff Complete? YES; Mean Corpuscular HGB CONC 31.9 g/dL (32.0-36.0); Mean Corpuscular Hemoglobin 26.1 pg (27.0-31.0); Mean Corpuscular Volume 81.8 fL (78.0-98.0); Mean Platelet Volume 7.4 fL (7.4-10.4); Monocytes 5 % (0-10); Neutrophil 68 % (42-75); Platelet Count 290 thou/uL (130-400); Platelet Morphology Comment Appears Adequate; RBC Distribution Width 13.5 % (11.5-14.5); Red Blood Cell (RBC) Count 3.93 mill/uL (4.20-5.40); White Blood Cell (WBC) Count 11.7 thou/uL (4.8-10.8)
[2021-05-04] MEDS: Enoxaparin Sodium 60 MG/0.6 ML SYRINGE SC SCH ×2 (08:34→19:45)
[2021-05-04] MEDS: Aspirin Chewable 81 MG TAB PO SCH (08:35)
[2021-05-04] MEDS: BARICITINIB 2 MG TAB PO SCH (08:35)
[2021-05-04] MEDS: Famotidine/PF 20 mg/2ml Vial SLOW IVP SCH (08:35)
[2021-05-04] MEDS: Dexamethasone 10 MG/ML VIAL SLOW IVP SCH (08:35)
[2021-05-04] MEDS ORDERED: Lantus 1000 UNITS/10 ML VIAL SC SCH (09:00)
[2021-05-04] MEDS: Albuterol 200 PUFF (6.7GM INHALER) INH SCH ×4 (09:10→18:43)
[2021-05-04 09:11] LABS: Actual Bicarbonate (HCO3a) 28.9 mEq/L (22-28); Base Excess (BEa) 5.4 mEq/L (-2.0 to +3.0); CO2 Tension 38.2 mmHg (35.0-45.0); Calcium, Ionized (arterial) 1.16 mmol/L (1.12-1.30); Carboxyhemoglobin (COHb) 0.4 gm% (0.0-3.0); Hemoglobin (Hb) 12.5 g/dL (12.0-16.0); O2 Tension (PaO2), arterial 68.9 mmHg (80.0-100.0); Potassium - ABG Lab 3.61 mmol/L (3.70-5.30)
[2021-05-04 09:14] LABS: Puncture Site RRA
[2021-05-04] MEDS: Polyethylene Glycol 3350 17 GM Packet PO SCH (10:41)
[2021-05-04] MEDS: Acetaminophen 325 MG TAB PO PRN (16:51)
[2021-05-04] MEDS ORDERED: Fentanyl CADD 100 ML ONE (17:17)
[2021-05-04] MEDS: Fentanyl CADD 100 ML IV SCH (17:21)
[2021-05-04] MEDS: Famotidine 20 MG TAB PER TUBE SCH (19:45)
[2021-05-04] MEDS: NPH, Human Insulin Isophane 300 UNIT/3 ML VIAL SC SCH (20:24)
[2021-05-05] MEDS: Insulin Regular 300 UNITS/3 ML VIAL SC PRN ×6 (01:00→20:28)
[2021-05-05] MEDS: Polyethylene Glycol 3350 17 GM Packet PO SCH ×3 (01:23→22:08)
[2021-05-05] MEDS: NPH, Human Insulin Isophane 300 UNIT/3 ML VIAL SC SCH ×4 (02:00→20:28)
[2021-05-05] MEDS: Lorazepam 2 MG/ML VIAL SLOW IVP PRN ×2 (02:20→13:05)
[2021-05-05 04:41] LABS: ALT (SGPT) 15 U/L (8-55); AST (SGOT) 9 U/L (5-34); Albumin 3.1 g/dL (3.5-5.0); Alkaline Phosphatase 92 U/L (40-110); Anion Gap 11 mmol/L (10-20); BUN (Urea Nitrogen) 18 mg/dL (9.8-20.1); Bilirubin, Total 0.5 mg/dL (0.2-1.2); Calc. Creatinine Clearance 144 mL/min (70-130); Calcium 9.2 mg/dL (7.8-10.44); Carbon Dioxide 30 mmol/L (22-29); Chloride 104 mmol/L (98-107); Glucose 229 mg/dL (70-105); Phosphorus 2.7 mg/dL (2.3-4.7); Potassium 3.8 mmol/L (3.5-5.1); Protein, Total 7.1 g/dL (6.0-8.3); Sodium 141 mmol/L (136-145)
[2021-05-05 05:04] LABS: Band 5 % (5-11); Hemoglobin 10.4 g/dL (12.0-16.0); Lymphocytes 15 % (21-51); MDiff Complete? YES; Mean Corpuscular HGB CONC 33.2 g/dL (32.0-36.0); Mean Corpuscular Hemoglobin 27.1 pg (27.0-31.0); Mean Corpuscular Volume 81.6 fL (78.0-98.0); Mean Platelet Volume 7.6 fL (7.4-10.4); Metamyelocyte 1 % (0-0); Monocytes 7 % (0-10); Myelocyte 1 % (0-0); Neutrophil 71 % (42-75); Platelet Count 264 thou/uL (130-400); Platelet Morphology Comment Appears Adequate; RBC Distribution Width 13.2 % (11.5-14.5); RBC Morphology Normal; Red Blood Cell (RBC) Count 3.85 mill/uL (4.20-5.40)
[2021-05-05] MEDS ORDERED: Magnesium 2 GM/50 ML 2 GM in Premix Bag 1 BAG IVPB SCH (06:30)
[2021-05-05] MEDS: Albuterol 200 PUFF (6.7GM INHALER) INH SCH ×4 (08:10→18:53)
[2021-05-05 08:32] LABS: Actual Bicarbonate (HCO3a) 25.2 mEq/L (22-28); Base Excess (BEa) 2.3 mEq/L (-2.0 to +3.0); CO2 Tension 33.3 mmHg (35.0-45.0); Calcium, Ionized (arterial) 1.18 mmol/L (1.12-1.30); Carboxyhemoglobin (COHb) 0.3 gm% (0.0-3.0); Hemoglobin (Hb) 10.9 g/dL (12.0-16.0); O2 Tension (PaO2), arterial 78.3 mmHg (80.0-100.0); Potassium - ABG Lab 3.65 mmol/L (3.70-5.30)
[2021-05-05 08:35] LABS: ALV-art Gradient 165.275 mmHg (0-20); Puncture Site RRA
[2021-05-05] MEDS: Enoxaparin Sodium 60 MG/0.6 ML SYRINGE SC SCH ×2 (08:43→20:27)
[2021-05-05] MEDS: BARICITINIB 2 MG TAB PO SCH (08:43)
[2021-05-05] MEDS: Famotidine 20 MG TAB PER TUBE SCH ×2 (08:43→20:27)
[2021-05-05] MEDS: Aspirin Chewable 81 MG TAB PO SCH (08:43)
[2021-05-05] MEDS: Dexamethasone 10 MG/ML VIAL SLOW IVP SCH (08:43)
[2021-05-05] MEDS: ALPRAZolam 0.5 MG TAB PO SCH (20:27)
[2021-05-06] MEDS ORDERED: Fentanyl CADD 100 ML ONE (00:30)
[2021-05-06] MEDS: Fentanyl CADD 100 ML IV SCH (00:31)
[2021-05-06] MEDS: Insulin Regular 300 UNITS/3 ML VIAL SC PRN ×3 (00:57→14:38)
[2021-05-06] MEDS: NPH, Human Insulin Isophane 300 UNIT/3 ML VIAL SC SCH ×4 (03:49→20:00)
[2021-05-06 04:32] LABS: ALT (SGPT) 15 U/L (8-55); AST (SGOT) 10 U/L (5-34); Albumin 2.9 g/dL (3.5-5.0); Alkaline Phosphatase 83 U/L (40-110); Anion Gap 7 mmol/L (10-20); BUN (Urea Nitrogen) 17 mg/dL (9.8-20.1); Bilirubin, Total 0.6 mg/dL (0.2-1.2); Calc. Creatinine Clearance 153 mL/min (70-130); Carbon Dioxide 31 mmol/L (22-29); Chloride 106 mmol/L (98-107); Globulin 3.8 g/dL (2.4-3.5); Glucose 181 mg/dL (70-105); Magnesium 1.9 mg/dL (1.6-2.6); Phosphorus 3.1 mg/dL (2.3-4.7); Protein, Total 6.7 g/dL (6.0-8.3); Sodium 140 mmol/L (136-145)
[2021-05-06 04:49] LABS: Mean Corpuscular HGB CONC 31.3 g/dL (32.0-36.0); Mean Corpuscular Hemoglobin 25.7 pg (27.0-31.0); Mean Corpuscular Volume 82.2 fL (78.0-98.0); Mean Platelet Volume 7.7 fL (7.4-10.4); Platelet Count 266 thou/uL (130-400); RBC Distribution Width 13.4 % (11.5-14.5); Red Blood Cell (RBC) Count 3.88 mill/uL (4.20-5.40); White Blood Cell (WBC) Count 11.3 thou/uL (4.8-10.8)
[2021-05-06] MEDS ORDERED: Magnesium 2 GM/50 ML 2 GM in Premix Bag 1 BAG IVPB SCH (05:00)
[2021-05-06 05:32] LABS: Band 12 % (5-11); Lymphocytes 20 % (21-51); MDiff Complete? YES; Monocytes 2 % (0-10); Neutrophil 66 % (42-75)
[2021-05-06] MEDS: Albuterol 200 PUFF (6.7GM INHALER) INH SCH ×4 (07:19→19:34)
[2021-05-06 07:38] LABS: Actual Bicarbonate (HCO3a) 25.7 mEq/L (22-28); Base Excess (BEa) 3.4 mEq/L (-2.0 to +3.0); CO2 Tension 31.3 mmHg (35.0-45.0); Calcium, Ionized (arterial) 1.17 mmol/L (1.12-1.30); Carboxyhemoglobin (COHb) 0.2 gm% (0.0-3.0); Potassium - ABG Lab 3.93 mmol/L (3.70-5.30); pH, Arterial 7.53 (7.35-7.45)
[2021-05-06 07:44] LABS: ALV-art Gradient 186.775 mmHg (0-20); O2 Tension (PaO2), arterial 57.3 mmHg (80.0-100.0); Puncture Site RRA
[2021-05-06] MEDS: ALPRAZolam 0.5 MG TAB PO SCH ×2 (09:38→20:51)
[2021-05-06] MEDS: Enoxaparin Sodium 60 MG/0.6 ML SYRINGE SC SCH ×2 (09:38→20:51)
[2021-05-06] MEDS: Aspirin Chewable 81 MG TAB PO SCH (09:38)
[2021-05-06] MEDS: Famotidine 20 MG TAB PER TUBE SCH ×2 (09:38→20:51)
[2021-05-06] MEDS: Dexamethasone 10 MG/ML VIAL SLOW IVP SCH (09:39)
[2021-05-06] MEDS: BARICITINIB 2 MG TAB PO SCH (10:15)
[2021-05-06] MEDS: Amlodipine 10 MG TAB PO SCH (10:28)
[2021-05-06] MEDS ORDERED: Amlodipine 10 MG TAB PO SCH (10:45)
[2021-05-06] MEDS: Polyethylene Glycol 3350 17 GM Packet PO SCH ×2 (11:50→23:08)
[2021-05-06] MEDS: Furosemide 40 MG/4 ML VIAL SLOW IVP SCH ×2 (11:52→23:07)
[2021-05-06 12:23] LABS: Bilirubin Negative (Negative); Blood, Urine 1+ (Negative); Clarity Clear (Clear); Glucose, Urine (Dipstick) Normal (Negative); Ketone, Urine Negative (Negative); Leukocyte Negative Leu/uL (Negative); Nitrite Negative (Negative); Protein, Urine (Dipstick) 20 mg/dL (Neg-Trace); RBC/HPF Greater than 50 HPF (0-3); Specific Gravity, Urine 1.031 (1.002-1.036); Squamous Epithelial 0-3 HPF (0-3); Urobilinogen Greater than 12 mg/dL (Less than 2)
[2021-05-06 12:25] LABS: Bacteria/HPF 1+ HPF (None Seen)
[2021-05-06 12:26] LABS: Urine Culture Reflex Yes Yes
[2021-05-07] MEDS: NPH, Human Insulin Isophane 300 UNIT/3 ML VIAL SC SCH ×4 (02:10→20:18)
[2021-05-07 04:19] LABS: Hemoglobin 10.2 g/dL (12.0-16.0); Mean Corpuscular HGB CONC 32.2 g/dL (32.0-36.0); Mean Corpuscular Hemoglobin 26.3 pg (27.0-31.0); Mean Corpuscular Volume 81.6 fL (78.0-98.0); Platelet Count 275 thou/uL (130-400); RBC Distribution Width 13.2 % (11.5-14.5); Red Blood Cell (RBC) Count 3.88 mill/uL (4.20-5.40); White Blood Cell (WBC) Count 11.5 thou/uL (4.8-10.8)
[2021-05-07 04:41] LABS: Anion Gap 12 mmol/L (10-20); BUN (Urea Nitrogen) 21 mg/dL (9.8-20.1); Calc. Creatinine Clearance 142 mL/min (70-130); Carbon Dioxide 28 mmol/L (22-29); Chloride 103 mmol/L (98-107); Glucose 225 mg/dL (70-105); Magnesium 1.9 mg/dL (1.6-2.6); Phosphorus 3.5 mg/dL (2.3-4.7); Potassium 3.7 mmol/L (3.5-5.1); Sodium 139 mmol/L (136-145)
[2021-05-07 05:29] LABS: Band 17 % (5-11); Lymphocytes 10 % (21-51); MDiff Complete? YES; Metamyelocyte 1 % (0-0); Monocytes 5 % (0-10); Neutrophil 67 % (42-75); Platelet Morphology Comment Appears Adequate; Rouleaux Formation SLIGHT = 1-5 cells (100X) (None Seen)
[2021-05-07] MEDS ORDERED: Magnesium 2 GM/50 ML 2 GM in Premix Bag 1 BAG IVPB SCH (06:45)
[2021-05-07] MEDS: Albuterol 200 PUFF (6.7GM INHALER) INH SCH ×4 (08:09→19:53)
[2021-05-07] MEDS: Aspirin Chewable 81 MG TAB PO SCH (08:37)
[2021-05-07] MEDS: Enoxaparin Sodium 60 MG/0.6 ML SYRINGE SC SCH ×2 (08:37→20:17)
[2021-05-07] MEDS: Dexamethasone 10 MG/ML VIAL SLOW IVP SCH (08:37)
[2021-05-07] MEDS: BARICITINIB 2 MG TAB PO SCH (08:37)
[2021-05-07] MEDS: Famotidine 20 MG TAB PER TUBE SCH ×2 (08:37→20:16)
[2021-05-07] MEDS: ALPRAZolam 0.5 MG TAB PO SCH ×3 (08:38→20:16)
[2021-05-07 08:58] LABS: Actual Bicarbonate (HCO3a) 28.3 mEq/L (22-28); Base Excess (BEa) 5.7 mEq/L (-2.0 to +3.0); CO2 Tension 34.2 mmHg (35.0-45.0); Calcium, Ionized (arterial) 1.18 mmol/L (1.12-1.30); Carboxyhemoglobin (COHb) 0.4 gm% (0.0-3.0); Hemoglobin (Hb) 11.9 g/dL (12.0-16.0); O2 Tension (PaO2), arterial 60.8 mmHg (80.0-100.0); Potassium - ABG Lab 3.68 mmol/L (3.70-5.30); pH, Arterial 7.54 (7.35-7.45)
[2021-05-07] MEDS: Insulin Regular 300 UNITS/3 ML VIAL SC PRN ×2 (09:00→14:12)
[2021-05-07 09:02] LABS: Puncture Site LBA
[2021-05-07] MEDS: Amlodipine 10 MG TAB PO SCH (09:04)
[2021-05-07] MEDS: Polyethylene Glycol 3350 17 GM Packet PO SCH ×2 (11:07→23:54)
[2021-05-07] MEDS ORDERED: Fentanyl CADD 100 ML ONE (13:06)
[2021-05-07] MEDS: Fentanyl CADD 100 ML IV SCH (13:11)
[2021-05-07] MEDS: Lorazepam 2 MG/ML VIAL SLOW IVP PRN ×2 (14:05→16:40)
[2021-05-07] MEDS ORDERED: Piperacillin/Tazobactam 3.375 GM in Sodium Chloride 0.9% 100 ML IVPB SCH ×2 (18:00→18:15)
[2021-05-08] MEDS: NPH, Human Insulin Isophane 300 UNIT/3 ML VIAL SC SCH ×4 (02:16→20:32)
[2021-05-08] MEDS: Piperacillin/Tazobactam 3.375 GM in Sodium Chloride 0.9% 100 ML IVPB SCH ×3 (02:17→17:51)
[2021-05-08 05:27] LABS: Hemoglobin 10.2 g/dL (12.0-16.0); Mean Corpuscular HGB CONC 32.1 g/dL (32.0-36.0); Mean Corpuscular Hemoglobin 26.1 pg (27.0-31.0); Mean Corpuscular Volume 81.5 fL (78.0-98.0); Mean Platelet Volume 8.1 fL (7.4-10.4); Platelet Count 285 thou/uL (130-400); White Blood Cell (WBC) Count 12.8 thou/uL (4.8-10.8)
[2021-05-08 06:09] LABS: ALT (SGPT) 23 U/L (8-55); AST (SGOT) 20 U/L (5-34); Alkaline Phosphatase 91 U/L (40-110); Anion Gap 11 mmol/L (10-20); BUN (Urea Nitrogen) 16 mg/dL (9.8-20.1); Bilirubin, Total 0.9 mg/dL (0.2-1.2); Calc. Creatinine Clearance 135 mL/min (70-130); Calcium 9.2 mg/dL (7.8-10.44); Carbon Dioxide 27 mmol/L (22-29); Chloride 106 mmol/L (98-107); Globulin 3.9 g/dL (2.4-3.5); Glucose 192 mg/dL (70-105); Phosphorus 2.6 mg/dL (2.3-4.7); Potassium 3.9 mmol/L (3.5-5.1); Protein, Total 6.9 g/dL (6.0-8.3); Sodium 140 mmol/L (136-145)
[2021-05-08] MEDS ORDERED: Magnesium 2 GM/50 ML 2 GM in Premix Bag 1 BAG IVPB SCH (06:15)
[2021-05-08] MEDS: Dexamethasone 10 MG/ML VIAL SLOW IVP SCH (07:52)
[2021-05-08] MEDS: Furosemide 20 MG/2 ML VIAL SLOW IVP SCH (07:52)
[2021-05-08] MEDS: BARICITINIB 2 MG TAB PO SCH (07:53)
[2021-05-08] MEDS: Aspirin Chewable 81 MG TAB PO SCH (07:53)
[2021-05-08] MEDS: ALPRAZolam 0.5 MG TAB PO SCH ×3 (07:53→20:16)
[2021-05-08] MEDS: Famotidine 20 MG TAB PER TUBE SCH ×2 (07:53→20:16)
[2021-05-08] MEDS: Amlodipine 10 MG TAB PO SCH (07:53)
[2021-05-08] MEDS: Polyethylene Glycol 3350 17 GM Packet PO SCH ×2 (07:53→23:32)
[2021-05-08] MEDS: Enoxaparin Sodium 60 MG/0.6 ML SYRINGE SC SCH ×2 (07:53→20:16)
[2021-05-08] MEDS: Albuterol 200 PUFF (6.7GM INHALER) INH SCH ×4 (08:20→19:50)
[2021-05-08 08:57] LABS: Actual Bicarbonate (HCO3a) 25.1 mEq/L (22-28); Base Excess (BEa) 2.6 mEq/L (-2.0 to +3.0); CO2 Tension 31.6 mmHg (35.0-45.0); Calcium, Ionized (arterial) 1.21 mmol/L (1.12-1.30); Carboxyhemoglobin (COHb) 0.3 gm% (0.0-3.0); Hemoglobin (Hb) 11.1 g/dL (12.0-16.0); O2 Tension (PaO2), arterial 60.7 mmHg (80.0-100.0); Potassium - ABG Lab 3.59 mmol/L (3.70-5.30); pH, Arterial 7.52 (7.35-7.45)
[2021-05-08 09:26] LABS: Hypochromia SLIGHT = 6-15 cells (100X) (0-5/hpf); Lymphocytes 20 % (21-51); MDiff Complete? YES; Monocytes 2 % (0-10); Neutrophil 78 % (42-75); Platelet Morphology Comment Appears Adequate; Vacuoles SLIGHT
[2021-05-08 09:29] LABS: Puncture Site LRA
[2021-05-08] MEDS: Lorazepam 2 MG/ML VIAL SLOW IVP PRN ×2 (10:41→23:32)
[2021-05-08] MEDS: Insulin Regular 300 UNITS/3 ML VIAL SC PRN (15:14)
[2021-05-08] MEDS ORDERED: cefTRIAXone\\ROCEPHIN 1 GM in Sodium Chloride 0.9% 100 ML IVPB SCH (18:00)
[2021-05-09] MEDS: Piperacillin/Tazobactam 3.375 GM in Sodium Chloride 0.9% 100 ML IVPB SCH ×3 (02:22→17:45)
[2021-05-09] MEDS: NPH, Human Insulin Isophane 300 UNIT/3 ML VIAL SC SCH ×4 (02:42→20:04)
[2021-05-09 04:17] LABS: ALT (SGPT) 29 U/L (8-55); AST (SGOT) 15 U/L (5-34); Albumin 2.9 g/dL (3.5-5.0); Alkaline Phosphatase 95 U/L (40-110); Anion Gap 9 mmol/L (10-20); BUN (Urea Nitrogen) 16 mg/dL (9.8-20.1); Bilirubin, Direct 0.3 mg/dL (0.1-0.3); Bilirubin, Total 0.7 mg/dL (0.2-1.2); Calc. Creatinine Clearance 0 mL/min (70-130); Calcium 9.1 mg/dL (7.8-10.44); Carbon Dioxide 28 mmol/L (22-29); Chloride 108 mmol/L (98-107); Globulin 3.8 g/dL (2.4-3.5); Glucose 107 mg/dL (70-105); Magnesium 2.1 mg/dL (1.6-2.6); Potassium 3.8 mmol/L (3.5-5.1); Protein, Total 6.7 g/dL (6.0-8.3); Sodium 141 mmol/L (136-145)
[2021-05-09] MEDS ORDERED: Fentanyl CADD 100 ML ONE (04:44)
[2021-05-09 04:53] LABS: Mean Corpuscular HGB CONC 32.3 g/dL (32.0-36.0); Mean Corpuscular Hemoglobin 26.5 pg (27.0-31.0); Mean Platelet Volume 8.1 fL (7.4-10.4); Platelet Count 258 thou/uL (130-400); RBC Distribution Width 13.1 % (11.5-14.5); Red Blood Cell (RBC) Count 3.76 mill/uL (4.20-5.40); White Blood Cell (WBC) Count 10.9 thou/uL (4.8-10.8)
[2021-05-09] MEDS: Fentanyl CADD 100 ML IV SCH (04:53)
[2021-05-09 04:56] LABS: Band 7 % (5-11); Lymphocytes 17 % (21-51); MDiff Complete? YES; Monocytes 6 % (0-10); Neutrophil 70 % (42-75)
[2021-05-09 05:01] LABS: Phosphorus 3.3 mg/dL (2.3-4.7)
[2021-05-09] MEDS: Albuterol 200 PUFF (6.7GM INHALER) INH SCH ×4 (07:34→18:49)
[2021-05-09 07:53] LABS: Actual Bicarbonate (HCO3a) 24.3 mEq/L (22-28); Base Excess (BEa) 1.2 mEq/L (-2.0 to +3.0); CO2 Tension 32.9 mmHg (35.0-45.0); Carboxyhemoglobin (COHb) 0.6 gm% (0.0-3.0); Hemoglobin (Hb) 10.3 g/dL (12.0-16.0); O2 Tension (PaO2), arterial 75.4 mmHg (80.0-100.0); Potassium - ABG Lab 4.02 mmol/L (3.70-5.30); pH, Arterial 7.49 (7.35-7.45)
[2021-05-09 08:02] LABS: ALV-art Gradient 168.675 mmHg (0-20); Puncture Site RRA
[2021-05-09] MEDS: Aspirin Chewable 81 MG TAB PO SCH (08:45)
[2021-05-09] MEDS: ALPRAZolam 0.5 MG TAB PO SCH ×3 (08:45→20:04)
[2021-05-09] MEDS: Amlodipine 10 MG TAB PO SCH (08:45)
[2021-05-09] MEDS: Furosemide 20 MG/2 ML VIAL SLOW IVP SCH (08:46)
[2021-05-09] MEDS: Enoxaparin Sodium 60 MG/0.6 ML SYRINGE SC SCH ×2 (08:46→20:04)
[2021-05-09] MEDS: BARICITINIB 2 MG TAB PO SCH (08:46)
[2021-05-09] MEDS: Dexamethasone 10 MG/ML VIAL SLOW IVP SCH (08:47)
[2021-05-09] MEDS: Famotidine 20 MG TAB PER TUBE SCH ×2 (08:47→20:04)
[2021-05-09] MEDS: Polyethylene Glycol 3350 17 GM Packet PO SCH ×2 (10:12→23:39)
[2021-05-09] MEDS: Lorazepam 2 MG/ML VIAL SLOW IVP PRN (13:35)
[2021-05-09] MEDS: Insulin Regular 300 UNITS/3 ML VIAL SC PRN ×2 (15:00→20:05)
[2021-05-09] MEDS: Dexmedetomidine 1,000 MCG in Sodium Chloride 0.9% 250 ML 240 ML IVPB SCH (16:53)
[2021-05-10] MEDS: Dexmedetomidine 1,000 MCG in Sodium Chloride 0.9% 250 ML 240 ML IVPB SCH ×3 (02:11→19:17)
[2021-05-10] MEDS: Piperacillin/Tazobactam 3.375 GM in Sodium Chloride 0.9% 100 ML IVPB SCH ×3 (02:16→19:47)
[2021-05-10] MEDS: NPH, Human Insulin Isophane 300 UNIT/3 ML VIAL SC SCH ×4 (02:35→20:23)
[2021-05-10] MEDS: Lorazepam 2 MG/ML VIAL SLOW IVP PRN ×3 (02:37→23:20)
[2021-05-10 04:41] LABS: Hemoglobin 9.7 g/dL (12.0-16.0); Mean Corpuscular HGB CONC 32.1 g/dL (32.0-36.0); Mean Corpuscular Hemoglobin 26.5 pg (27.0-31.0); Mean Corpuscular Volume 82.5 fL (78.0-98.0); Platelet Count 269 thou/uL (130-400); RBC Distribution Width 13.1 % (11.5-14.5); Red Blood Cell (RBC) Count 3.66 mill/uL (4.20-5.40); White Blood Cell (WBC) Count 8.5 thou/uL (4.8-10.8)
[2021-05-10 04:54] LABS: ALT (SGPT) 30 U/L (8-55); AST (SGOT) 15 U/L (5-34); Albumin 2.9 g/dL (3.5-5.0); Alkaline Phosphatase 90 U/L (40-110); Anion Gap 10 mmol/L (10-20); BUN (Urea Nitrogen) 18 mg/dL (9.8-20.1); Bilirubin, Total 0.6 mg/dL (0.2-1.2); Calc. Creatinine Clearance 141 mL/min (70-130); Calcium 9.1 mg/dL (7.8-10.44); Carbon Dioxide 29 mmol/L (22-29); Chloride 107 mmol/L (98-107); Globulin 3.8 g/dL (2.4-3.5); Glucose 145 mg/dL (70-105); Magnesium 1.9 mg/dL (1.6-2.6); Phosphorus 3.2 mg/dL (2.3-4.7); Potassium 3.6 mmol/L (3.5-5.1); Protein, Total 6.7 g/dL (6.0-8.3); Sodium 142 mmol/L (136-145)
[2021-05-10] MEDS ORDERED: Magnesium 2 GM/50 ML 2 GM in Premix Bag 1 BAG IVPB SCH (05:15)
[2021-05-10 06:45] LABS: Band 7 % (5-11); Lymphocytes 33 % (21-51); MDiff Complete? YES; Monocytes 2 % (0-10); Neutrophil 58 % (42-75)
[2021-05-10] MEDS: Albuterol 200 PUFF (6.7GM INHALER) INH SCH ×4 (07:10→19:08)
[2021-05-10 07:28] LABS: Actual Bicarbonate (HCO3a) 24.8 mEq/L (22-28); Base Excess (BEa) 0.8 mEq/L (-2.0 to +3.0); CO2 Tension 37.2 mmHg (35.0-45.0); Calcium, Ionized (arterial) 1.23 mmol/L (1.12-1.30); Carboxyhemoglobin (COHb) 0.3 gm% (0.0-3.0); Hemoglobin (Hb) 10.3 g/dL (12.0-16.0); O2 Tension (PaO2), arterial 73.3 mmHg (80.0-100.0); Potassium - ABG Lab 3.47 mmol/L (3.70-5.30); pH, Arterial 7.44 (7.35-7.45)
[2021-05-10 07:31] LABS: Puncture Site LRA
[2021-05-10] MEDS ORDERED: Enoxaparin Sodium 40 MG/0.4 ML SYRINGE ONE (08:00)
[2021-05-10] MEDS: Aspirin Chewable 81 MG TAB PO SCH (08:43)
[2021-05-10] MEDS: Amlodipine 10 MG TAB PO SCH (08:43)
[2021-05-10] MEDS: ALPRAZolam 0.5 MG TAB PO SCH ×3 (08:43→19:47)
[2021-05-10] MEDS: Furosemide 20 MG/2 ML VIAL SLOW IVP SCH (08:44)
[2021-05-10] MEDS: Famotidine 20 MG TAB PER TUBE SCH ×2 (08:44→19:47)
[2021-05-10] MEDS: BARICITINIB 2 MG TAB PO SCH (08:49)
[2021-05-10] MEDS: Enoxaparin Sodium 60 MG/0.6 ML SYRINGE SC SCH ×2 (08:52→19:46)
[2021-05-10] MEDS ORDERED: Dexamethasone 4 mg/ml Vial SLOW IVP SCH (09:00)
[2021-05-10] MEDS: Insulin Regular 300 UNITS/3 ML VIAL SC PRN ×3 (09:22→20:23)
[2021-05-10] MEDS ORDERED: Fentanyl CADD 100 ML ONE (18:36)
[2021-05-10] MEDS: Fentanyl CADD 100 ML IV SCH (18:42)
[2021-05-11] MEDS: NPH, Human Insulin Isophane 300 UNIT/3 ML VIAL SC SCH ×4 (01:24→20:49)
[2021-05-11] MEDS: Insulin Regular 300 UNITS/3 ML VIAL SC PRN (01:24)
[2021-05-11] MEDS: Piperacillin/Tazobactam 3.375 GM in Sodium Chloride 0.9% 100 ML IVPB SCH ×3 (01:25→17:47)
[2021-05-11] MEDS: Dexmedetomidine 1,000 MCG in Sodium Chloride 0.9% 250 ML 240 ML IVPB SCH ×3 (03:51→19:51)
[2021-05-11 04:42] LABS: Hemoglobin 10.1 g/dL (12.0-16.0); Mean Corpuscular HGB CONC 32.9 g/dL (32.0-36.0); Mean Corpuscular Volume 82.1 fL (78.0-98.0); Mean Platelet Volume 8.2 fL (7.4-10.4); Platelet Count 303 thou/uL (130-400); RBC Distribution Width 12.9 % (11.5-14.5); Red Blood Cell (RBC) Count 3.72 mill/uL (4.20-5.40); White Blood Cell (WBC) Count 8.2 thou/uL (4.8-10.8)
[2021-05-11 05:30] LABS: Band 5 % (5-11); Lymphocytes 22 % (21-51); MDiff Complete? YES; Metamyelocyte 1 % (0-0); Monocytes 6 % (0-10); Neutrophil 66 % (42-75)
[2021-05-11 06:12] LABS: ALT (SGPT) 32 U/L (8-55); AST (SGOT) 15 U/L (5-34); Albumin 2.9 g/dL (3.5-5.0); Alkaline Phosphatase 87 U/L (40-110); Anion Gap 9 mmol/L (10-20); BUN (Urea Nitrogen) 18 mg/dL (9.8-20.1); Bilirubin, Total 0.6 mg/dL (0.2-1.2); Calc. Creatinine Clearance 137 mL/min (70-130); Calcium 8.9 mg/dL (7.8-10.44); Carbon Dioxide 28 mmol/L (22-29); Chloride 106 mmol/L (98-107); Globulin 3.8 g/dL (2.4-3.5); Glucose 236 mg/dL (70-105); Magnesium 1.9 mg/dL (1.6-2.6); Phosphorus 2.4 mg/dL (2.3-4.7); Protein, Total 6.7 g/dL (6.0-8.3); Sodium 139 mmol/L (136-145)
[2021-05-11] MEDS ORDERED: Magnesium 2 GM/50 ML 2 GM in Premix Bag 1 BAG IVPB SCH (06:30)
[2021-05-11] MEDS: BARICITINIB 2 MG TAB PO SCH (08:04)
[2021-05-11] MEDS: Furosemide 20 MG/2 ML VIAL SLOW IVP SCH (08:04)
[2021-05-11] MEDS: Enoxaparin Sodium 60 MG/0.6 ML SYRINGE SC SCH ×2 (08:04→20:22)
[2021-05-11] MEDS: Amlodipine 10 MG TAB PO SCH (08:05)
[2021-05-11] MEDS: Famotidine 20 MG TAB PER TUBE SCH ×2 (08:05→20:23)
[2021-05-11] MEDS: Aspirin Chewable 81 MG TAB PO SCH (08:05)
[2021-05-11] MEDS: ALPRAZolam 0.5 MG TAB PO SCH ×3 (08:05→20:23)
[2021-05-11] MEDS: Albuterol 200 PUFF (6.7GM INHALER) INH SCH ×4 (08:05→19:23)
[2021-05-11 08:29] LABS: Actual Bicarbonate (HCO3a) 22.4 mEq/L (22-28); Base Excess (BEa) -0.7 mEq/L (-2.0 to +3.0); CO2 Tension 31.6 mmHg (35.0-45.0); Calcium, Ionized (arterial) 1.17 mmol/L (1.12-1.30); Carboxyhemoglobin (COHb) 0.3 gm% (0.0-3.0); Hemoglobin (Hb) 10.7 g/dL (12.0-16.0); O2 Tension (PaO2), arterial 79.4 mmHg (80.0-100.0); Potassium - ABG Lab 3.62 mmol/L (3.70-5.30); pH, Arterial 7.47 (7.35-7.45)
[2021-05-11 08:30] LABS: Puncture Site RRA
[2021-05-11] MEDS ORDERED: Dexamethasone 4 mg/ml Vial SLOW IVP SCH (10:30)
[2021-05-12] MEDS: NPH, Human Insulin Isophane 300 UNIT/3 ML VIAL SC SCH ×4 (02:33→21:26)
[2021-05-12] MEDS: Piperacillin/Tazobactam 3.375 GM in Sodium Chloride 0.9% 100 ML IVPB SCH ×3 (03:07→16:27)
[2021-05-12 04:15] LABS: Phosphorus 2.7 mg/dL (2.3-4.7)
[2021-05-12 04:16] LABS: ALT (SGPT) 39 U/L (8-55); AST (SGOT) 20 U/L (5-34); Alkaline Phosphatase 86 U/L (40-110); Anion Gap 9 mmol/L (10-20); BUN (Urea Nitrogen) 15 mg/dL (9.8-20.1); Bilirubin, Direct 0.3 mg/dL (0.1-0.3); Bilirubin, Total 0.7 mg/dL (0.2-1.2); Calc. Creatinine Clearance 153 mL/min (70-130); Calcium 8.9 mg/dL (7.8-10.44); Carbon Dioxide 26 mmol/L (22-29); Chloride 106 mmol/L (98-107); Globulin 3.8 g/dL (2.4-3.5); Glucose 119 mg/dL (70-105); Potassium 3.6 mmol/L (3.5-5.1); Protein, Total 6.8 g/dL (6.0-8.3); Sodium 137 mmol/L (136-145)
[2021-05-12 04:20] LABS: Hemoglobin 10.4 g/dL (12.0-16.0); Mean Corpuscular HGB CONC 31.8 g/dL (32.0-36.0); Mean Corpuscular Hemoglobin 26.3 pg (27.0-31.0); Mean Corpuscular Volume 82.8 fL (78.0-98.0); Mean Platelet Volume 7.9 fL (7.4-10.4); Platelet Count 307 thou/uL (130-400); RBC Distribution Width 12.9 % (11.5-14.5); Red Blood Cell (RBC) Count 3.95 mill/uL (4.20-5.40); White Blood Cell (WBC) Count 7.6 thou/uL (4.8-10.8)
[2021-05-12 05:56] LABS: Band 5 % (5-11); Lymphocytes 33 % (21-51); MDiff Complete? YES; Monocytes 1 % (0-10); Neutrophil 60 % (42-75); RBC Morphology Normal; Reactive Lymphocytes 1 % (0-10)
[2021-05-12] MEDS ORDERED: Magnesium 2 GM/50 ML 2 GM in Premix Bag 1 BAG IVPB SCH (06:15)
[2021-05-12] MEDS: Dexamethasone 4 mg/ml Vial SLOW IVP SCH (08:42)
[2021-05-12] MEDS: Furosemide 20 MG/2 ML VIAL SLOW IVP SCH (08:43)
[2021-05-12] MEDS: Enoxaparin Sodium 60 MG/0.6 ML SYRINGE SC SCH ×2 (08:44→21:11)
[2021-05-12] MEDS: Famotidine 20 MG TAB PER TUBE SCH ×3 (08:44→21:11)
[2021-05-12] MEDS: BARICITINIB 2 MG TAB PO SCH (08:44)
[2021-05-12] MEDS: Aspirin Chewable 81 MG TAB PO SCH (08:45)
[2021-05-12] MEDS: Amlodipine 10 MG TAB PO SCH (08:45)
[2021-05-12] MEDS: ALPRAZolam 0.5 MG TAB PO SCH ×2 (08:45→15:14)
[2021-05-12] MEDS: Acetaminophen 325 MG TAB PO PRN (11:56)
[2021-05-12] MEDS: Dexmedetomidine 1,000 MCG in Sodium Chloride 0.9% 250 ML 240 ML IVPB SCH (12:06)
[2021-05-12] MEDS: Lorazepam 2 MG/ML VIAL SLOW IVP PRN (13:00)
[2021-05-12] MEDS: Insulin Regular 300 UNITS/3 ML VIAL SC PRN (15:13)
[2021-05-12] MEDS ORDERED: ALPRAZolam 0.5 MG TAB PO SCH (21:00)
[2021-05-13] MEDS: Piperacillin/Tazobactam 3.375 GM in Sodium Chloride 0.9% 100 ML IVPB SCH ×3 (01:58→19:45)
[2021-05-13] MEDS: NPH, Human Insulin Isophane 300 UNIT/3 ML VIAL SC SCH ×4 (03:14→20:58)
[2021-05-13] MEDS: Acetaminophen 325 MG TAB PO PRN ×2 (05:44→10:12)
[2021-05-13] MEDS: Enoxaparin Sodium 60 MG/0.6 ML SYRINGE SC SCH ×2 (08:33→20:33)
[2021-05-13] MEDS: Amlodipine 10 MG TAB PO SCH (08:33)
[2021-05-13] MEDS: Furosemide 20 MG/2 ML VIAL SLOW IVP SCH (08:33)
[2021-05-13] MEDS: Famotidine 20 MG TAB PER TUBE SCH ×2 (08:34→19:54)
[2021-05-13] MEDS: Dexamethasone 4 mg/ml Vial SLOW IVP SCH (08:34)
[2021-05-13] MEDS: Aspirin Chewable 81 MG TAB PO SCH (08:34)
[2021-05-13] MEDS ORDERED: OLANZapine 10 MG VIAL IM PRN (08:41)
[2021-05-13] MEDS: guaiFENesin/Codeine 200 mg/20 mg 10 ml Cup PO PRN ×2 (10:12→19:53)
[2021-05-13] MEDS: Mag-Al Plus 1200 MG/1200 MG/120 MG/30 ML UDCUP PO PRN ×2 (12:03→17:43)
[2021-05-13] MEDS: VICKS VAPORUB TOP PRN ×2 (12:03→21:37)
[2021-05-13 13:46] VITALS: BMI 39.6
[2021-05-13] MEDS: ALPRAZolam 0.5 MG TAB PO SCH (15:30)
[2021-05-13] MEDS: Insulin Regular 300 UNITS/3 ML VIAL SC PRN (16:16)
[2021-05-13] MEDS: Albuterol 200 PUFF (6.7GM INHALER) INH SCH ×4 (18:44→20:24)
[2021-05-13] MEDS: Ipratropium Bromide 0.06% Nasal Inhaler 15ml EA NARE SCH ×2 (18:46→21:06)
[2021-05-13] MEDS: Amoxicillin/Potassium Clav 875 MG TAB PO SCH (19:53)
[2021-05-14] MEDS: guaiFENesin/Codeine 200 mg/20 mg 10 ml Cup PO PRN (01:10)
[2021-05-14] MEDS: Mag-Al Plus 1200 MG/1200 MG/120 MG/30 ML UDCUP PO PRN ×2 (01:10→12:06)
[2021-05-14] MEDS: NPH, Human Insulin Isophane 300 UNIT/3 ML VIAL SC SCH ×4 (01:26→20:52)
[2021-05-14 06:56] LABS: Anion Gap 14 mmol/L (10-20); BUN (Urea Nitrogen) 10 mg/dL (9.8-20.1); Calc. Creatinine Clearance 138 mL/min (70-130); Calcium 9.1 mg/dL (7.8-10.44); Carbon Dioxide 23 mmol/L (22-29); Chloride 108 mmol/L (98-107); Glucose 136 mg/dL (70-105); Potassium 3.3 mmol/L (3.5-5.1); Sodium 142 mmol/L (136-145)
[2021-05-14] MEDS: Albuterol 200 PUFF (6.7GM INHALER) INH SCH ×4 (07:05→20:51)
[2021-05-14 07:49] LABS: Hemoglobin 11.4 g/dL (12.0-16.0); Mean Corpuscular HGB CONC 32.3 g/dL (32.0-36.0); Mean Corpuscular Hemoglobin 26.2 pg (27.0-31.0); Mean Corpuscular Volume 81.1 fL (78.0-98.0); Mean Platelet Volume 7.8 fL (7.4-10.4); Platelet Count 361 thou/uL (130-400); RBC Distribution Width 13.2 % (11.5-14.5); Red Blood Cell (RBC) Count 4.34 mill/uL (4.20-5.40); White Blood Cell (WBC) Count 11.4 thou/uL (4.8-10.8)
[2021-05-14] MEDS ORDERED: Dexamethasone 4 MG TAB PO SCH (08:00)
[2021-05-14] MEDS ORDERED: Furosemide 20 MG TAB PO SCH (09:00)
[2021-05-14 10:22] LABS: Hypochromia SLIGHT = 6-15 cells (100X) (0-5/hpf); Lymphocytes 16 % (21-51); MDiff Complete? YES; Monocytes 10 % (0-10); Neutrophil 74 % (42-75); Platelet Morphology Comment Appears Adequate
[2021-05-14] MEDS: Amlodipine 10 MG TAB PO SCH (11:14)
[2021-05-14] MEDS: Acetaminophen 325 MG TAB PO PRN (11:14)
[2021-05-14] MEDS: Amoxicillin/Potassium Clav 875 MG TAB PO SCH ×2 (11:18→20:51)
[2021-05-14] MEDS: Famotidine 20 MG TAB PER TUBE SCH ×2 (11:18→20:50)
[2021-05-14] MEDS: Enoxaparin Sodium 60 MG/0.6 ML SYRINGE SC SCH ×2 (11:19→20:52)
[2021-05-14] MEDS: Aspirin Chewable 81 MG TAB PO SCH (11:19)
[2021-05-14] MEDS: Ipratropium Bromide 0.06% Nasal Inhaler 15ml EA NARE SCH ×2 (11:19→21:49)
[2021-05-14] MEDS ORDERED: Potassium Chloride 20 MEQ TAB PO SCH ×2 (13:45→20:15)
[2021-05-14] MEDS: ALPRAZolam 0.5 MG TAB PO SCH (18:21)
[2021-05-14 20:51] VITALS: BP 156/87; TEMP 98.3
== END 2021-05-14 23:05 | disposition home or self-care (01) | DRG 870 ==
LOC: ERS 02:26 → ERHOLD 04:03 → T4-B 17:21 → CCU 04-28 15:08 → T4-A 05-13 18:38
PROVIDERS: ADMIT Student in an Organized Health Care Education/Training Program; ATTEND Internal Medicine
PROC: XW033E5 Introduction of Remdesivir Anti-infective into Peripheral Vein, Percutaneous Approach, New Technology Group 5 (ICD-10-PCS; principal; 2021-04-27)
PROC: 5A0945A Assistance with Respiratory Ventilation, 24-96 Consecutive Hours, High Flow/Velocity Cannula (ICD-10-PCS; 2021-04-27)
PROC: 8E0ZXY6 Isolation (ICD-10-PCS; 2021-04-27)
PROC: 3E0333Z Introduction of Anti-inflammatory into Peripheral Vein, Percutaneous Approach (ICD-10-PCS; 2021-04-27)
PROC: 5A1955Z Respiratory Ventilation, Greater than 96 Consecutive Hours (ICD-10-PCS; 2021-04-28)
PROC: 3E033XZ Introduction of Vasopressor into Peripheral Vein, Percutaneous Approach (ICD-10-PCS; 2021-04-28)
PROC: 0BH17EZ Insertion of Endotracheal Airway into Trachea, Via Natural or Artificial Opening (ICD-10-PCS; 2021-04-28)
PROC: XW0DXM6 Introduction of Baricitinib into Mouth and Pharynx, External Approach, New Technology Group 6 (ICD-10-PCS; 2021-04-30)
PROC: 5A09357 Assistance with Respiratory Ventilation, Less than 24 Consecutive Hours, Continuous Positive Airway Pressure (ICD-10-PCS; 2021-05-11)
DX: A41.89 Other specified sepsis (principal); U07.1 COVID-19; J12.82 Pneumonia due to coronavirus disease 2019; J96.01 Acute respiratory failure with hypoxia; E87.1 Hypo-osmolality and hyponatremia; N39.0 Urinary tract infection, site not specified; I47.2 Ventricular tachycardia; Z68.41 Body mass index [BMI] 40.0-44.9, adult; R65.20 Severe sepsis without septic shock; I10 Essential (primary) hypertension; E78.5 Hyperlipidemia, unspecified; K21.9 Gastro-esophageal reflux disease without esophagitis; M19.90 Unspecified osteoarthritis, unspecified site; D86.9 Sarcoidosis, unspecified; E87.6 Hypokalemia; E11.65 Type 2 diabetes mellitus with hyperglycemia; T38.0X5A Adverse effect of glucocorticoids and synthetic analogues, initial encounter; E66.01 Morbid (severe) obesity due to excess calories; M79.7 Fibromyalgia; D64.9 Anemia, unspecified; E83.42 Hypomagnesemia; R49.8 Other voice and resonance disorders; R45.1 Restlessness and agitation; B95.2 Enterococcus as the cause of diseases classified elsewhere; F41.9 Anxiety disorder, unspecified; R13.10 Dysphagia, unspecified; E87.70 Fluid overload, unspecified; Z88.1 Allergy status to other antibiotic agents; Z98.51 Tubal ligation status; Z78.1 Physical restraint status; Z88.2 Allergy status to sulfonamides; Z88.8 Allergy status to other drugs, medicaments and biological substances; Z79.899 Other long term (current) drug therapy; Z79.82 Long term (current) use of aspirin; Z79.84 Long term (current) use of oral hypoglycemic drugs; Z90.49 Acquired absence of other specified parts of digestive tract; Z90.710 Acquired absence of both cervix and uterus; Z85.3 Personal history of malignant neoplasm of breast; Z79.810 Long term (current) use of selective estrogen receptor modulators (SERMs)
CPT/HCPCS: 36415; 36416; 36600; 71045; 80048; 80053; 80076; 81001; 82728; 82805; 83690; 83735; 84100; 84484; 85025; 85379; 86140; 87040; 87070; 87077; 87086; 87186; 87205; 93005; 93306; 94002; 94003; 94660; 94760; 96374; 96375; J0696; J1100; J1650; J1815; J1885; J1940; J2060; J2358; J2543; J2704; J3010; J3475; J3490; J7050; J8540; S0028

== ENCOUNTER 2021-05-27 19:37 | Emergency (ER) | payer MEDICARE, MEDICAID ==
[2021-05-27 22:00] LABS: Hemoglobin 11.3 g/dL (12.0-16.0); Mean Corpuscular HGB CONC 31.6 g/dL (32.0-36.0); Mean Corpuscular Hemoglobin 25.7 pg (27.0-31.0); Mean Corpuscular Volume 81.4 fL (78.0-98.0); Mean Platelet Volume 8.2 fL (7.4-10.4); Platelet Count 193 thou/uL (130-400); RBC Distribution Width 15.2 % (11.5-14.5); Red Blood Cell (RBC) Count 4.39 mill/uL (4.20-5.40); White Blood Cell (WBC) Count 8.1 thou/uL (4.8-10.8)
[2021-05-27 22:01] LABS: #Basophils 0.1 thou/uL (0.0-0.2); #Eosinphils 0.1 thou/uL (0.0-0.7); #Lymphocytes 1.6 thou/uL (1.20-3.40); #Monocytes 0.6 thou/uL (0.11-0.59); #Neutrophils 5.8 thou/uL (1.40-6.50); %Basophils 1.1 % (0.0-1.0); %Eosinophils 1.2 % (0.0-10.0); %Lymphocytes 19.9 % (21.0-51.0); %Monocytes 6.8 % (0.0-10.0); %Neutrophils 71.1 % (42.0-75.0)
[2021-05-27 22:53] LABS: ALT (SGPT) 35 U/L (8-55); AST (SGOT) 25 U/L (5-34); Albumin 3.8 g/dL (3.5-5.0); Alkaline Phosphatase 119 U/L (40-110); Anion Gap 16 mmol/L (10-20); BUN (Urea Nitrogen) 7 mg/dL (9.8-20.1); Bilirubin, Total 0.7 mg/dL (0.2-1.2); Calc. Creatinine Clearance 0 mL/min (70-130); Calcium 9.5 mg/dL (7.8-10.44); Carbon Dioxide 26 mmol/L (22-29); Chloride 102 mmol/L (98-107); Globulin 3.3 g/dL (2.4-3.5); Glucose 264 mg/dL (70-105); Lipase 9 U/L (8-78); Potassium 3.8 mmol/L (3.5-5.1); Protein, Total 7.1 g/dL (6.0-8.3); Sodium 140 mmol/L (136-145)
== END 2021-05-28 02:38 | disposition home or self-care (01) ==
LOC: ERS 19:37
DX: R10.13 Epigastric pain (principal); E11.9 Type 2 diabetes mellitus without complications; K21.9 Gastro-esophageal reflux disease without esophagitis; E78.00 Pure hypercholesterolemia, unspecified; E78.5 Hyperlipidemia, unspecified; I10 Essential (primary) hypertension; M19.90 Unspecified osteoarthritis, unspecified site; M79.7 Fibromyalgia; D86.9 Sarcoidosis, unspecified; Z86.16 Personal history of COVID-19
CPT/HCPCS: 36415; 71045; 80053; 83690; 84484; 85025; 93005

== ENCOUNTER 2021-05-31 14:24 | Outpatient (CLI) | payer MEDICARE, OTHER, MEDICAID ==
[2021-05-31 16:38] LABS: Anion Gap 17 mmol/L (10-20); BUN (Urea Nitrogen) 5 mg/dL (9.8-20.1); Calc. Creatinine Clearance 0 mL/min (70-130); Calcium 9.2 mg/dL (7.8-10.44); Carbon Dioxide 19 mmol/L (22-29); Chloride 107 mmol/L (98-107); Glucose 203 mg/dL (70-105); Potassium 3.6 mmol/L (3.5-5.1); Sodium 139 mmol/L (136-145)
[2021-05-31 17:14] LABS: #Eosinphils 0.1 10x3/uL (0.0-0.5); #Monocytes 0.7 10x3/uL (0.0-1.1); #Neutrophils 6.3 10x3/uL (1.5-8.4); %Basophils 0.3 % (0.0-2.0); %Eosinophils 0.7 % (0.0-6.0); %Lymphocytes 17.9 % (18.0-47.0); %Monocytes 7.8 % (0.0-10.0); %Neutrophils 72.6 % (40.0-75.0); Hemoglobin 10.2 g/dL (12.0-15.5); Mean Corpuscular HGB CONC 31.7 g/dL (32.0-36.0); Mean Corpuscular Hemoglobin 25.6 pg (27.0-33.0); Mean Corpuscular Volume 80.7 fl (81.6-98.3); Mean Platelet Volume 10.4 fl (7.4-10.4); Platelet Count 227 10x3/uL (150-450); RBC Distribution Width 16.4 % (11.5-14.5); Red Blood Cell (RBC) Count 3.99 10x6/uL (3.90-5.03); White Blood Cell (WBC) Count 8.7 10x3/uL (3.5-10.5)
[2021-06-01 08:06] LABS: SARS-CoV-2 PCR by NAA Not Detected (NotDetected)
== END 2021-05-31 14:25 | disposition home or self-care (01) ==
LOC: LABBT 14:24
PROVIDERS: ATTEND Surgery
DX: Z01.818 Encounter for other preprocedural examination (principal); Z20.822 Contact with and (suspected) exposure to COVID-19
CPT/HCPCS: 80048; 85025; 93005; U0003; U0005; 93010

== ENCOUNTER 2021-06-01 12:15 | Emergency (ER) | payer MEDICARE, OTHER, MEDICAID ==
[~2021-06-01 12:15] MED LIST changes: +Iopamidol 370 76% 50 ML VIAL FS ONE
[2021-06-01] MEDS ORDERED: Lidocaine Viscous Sol 2% 15 ml UD Cup ONE (13:46)
[2021-06-01] MEDS ORDERED: Mag-Al 1200 mg/1200 mg/30 ML UDCUP ONE (13:46)
[2021-06-01] MEDS ORDERED: Ondansetron PF 4 MG/2 ML Vial ONE (13:46)
[2021-06-01 14:00] LABS: #Lymphocytes 1.3 thou/uL (1.20-3.40); #Monocytes 0.4 thou/uL (0.11-0.59); #Neutrophils 6.2 thou/uL (1.40-6.50); %Basophils 0.6 % (0.0-1.0); %Eosinophils 0.6 % (0.0-10.0); %Lymphocytes 15.9 % (21.0-51.0); Hemoglobin 11.4 g/dL (12.0-16.0); Mean Corpuscular Hemoglobin 26.5 pg (27.0-31.0); Mean Corpuscular Volume 82.7 fL (78.0-98.0); Mean Platelet Volume 7.8 fL (7.4-10.4); Platelet Count 227 thou/uL (130-400); RBC Distribution Width 15.4 % (11.5-14.5); Red Blood Cell (RBC) Count 4.29 mill/uL (4.20-5.40)
[2021-06-01] MEDS ORDERED: Lorazepam 2 MG/ML VIAL ONE (14:08)
[2021-06-01 14:24] LABS: ALT (SGPT) 33 U/L (8-55); AST (SGOT) 20 U/L (5-34); Albumin 3.6 g/dL (3.5-5.0); Alkaline Phosphatase 115 U/L (40-110); Anion Gap 13 mmol/L (10-20); BUN (Urea Nitrogen) 6 mg/dL (9.8-20.1); Bilirubin, Total 0.6 mg/dL (0.2-1.2); CK (CPK) 31 U/L (29-168); Calc. Creatinine Clearance 0 mL/min (70-130); Carbon Dioxide 22 mmol/L (22-29); Chloride 107 mmol/L (98-107); Globulin 3.3 g/dL (2.4-3.5); Glucose 236 mg/dL (70-105); Potassium 3.3 mmol/L (3.5-5.1); Protein, Total 6.9 g/dL (6.0-8.3); Sodium 139 mmol/L (136-145)
== END 2021-06-01 18:12 | disposition home or self-care (01) ==
LOC: ERS 12:15
DX: K22.2 Esophageal obstruction (principal); R59.1 Generalized enlarged lymph nodes; E04.1 Nontoxic single thyroid nodule; E11.9 Type 2 diabetes mellitus without complications; K21.9 Gastro-esophageal reflux disease without esophagitis; E78.5 Hyperlipidemia, unspecified; E78.00 Pure hypercholesterolemia, unspecified; I10 Essential (primary) hypertension; M19.90 Unspecified osteoarthritis, unspecified site; M79.7 Fibromyalgia; D86.9 Sarcoidosis, unspecified; Z85.3 Personal history of malignant neoplasm of breast
CPT/HCPCS: 70491; 71260; 80053; 82550; 85025; 96374; 96375; J2060; J2405; Q9967

== ENCOUNTER 2021-06-08 11:49 | Outpatient (CLI) | payer MEDICARE, MEDICAID | END 2021-06-08 11:50 | disposition home or self-care (01) | LOC: ULT 11:49 | PROVIDERS: ATTEND Internal Medicine Medical Oncology | DX: R93.0 Abnormal findings on diagnostic imaging of skull and head, not elsewhere classified (principal); C50.512 Malignant neoplasm of lower-outer quadrant of left female breast; E07.89 Other specified disorders of thyroid | CPT/HCPCS: 76536 ==

== ENCOUNTER 2021-06-14 09:14 | Outpatient (CLI) | payer MEDICARE, MEDICAID | END 2021-06-14 09:15 | disposition home or self-care (01) | LOC: BICRAD 09:14 | PROVIDERS: ATTEND Internal Medicine Pulmonary Disease | DX: R06.00 Dyspnea, unspecified (principal) | CPT/HCPCS: 71046 ==

== ENCOUNTER 2021-06-21 12:09 | Day surgery (SDC) | payer MEDICARE, MEDICAID ==
[2021-06-17 12:48] VITALS: BMI 38.2
[2021-06-21] MEDS ORDERED: Lidocaine 1% PF 5 ML VIAL ONE (13:16)
[2021-06-21] MEDS ORDERED: Sodium Bicarbonate 2.5 MEQ/5 ML VIAL ONE (13:16)
[2021-06-21 13:30] VITALS: BP 133/89; TEMP 99.2
== END 2021-06-21 13:30 | disposition home or self-care (01) ==
LOC: ULT 12:09
PROVIDERS: ATTEND Internal Medicine Medical Oncology
PROC: 0GBH3ZX Excision of Right Thyroid Gland Lobe, Percutaneous Approach, Diagnostic (ICD-10-PCS; principal; 2021-06-21)
DX: E04.1 Nontoxic single thyroid nodule (principal); Z88.2 Allergy status to sulfonamides; Z88.6 Allergy status to analgesic agent; Z88.8 Allergy status to other drugs, medicaments and biological substances; Z79.84 Long term (current) use of oral hypoglycemic drugs; Z79.82 Long term (current) use of aspirin; Z79.899 Other long term (current) drug therapy
CPT/HCPCS: 60100; 76942; 88173

== ENCOUNTER 2021-09-13 13:20 | Outpatient (CLI) | payer MEDICARE, MEDICAID | END 2021-09-13 13:21 | disposition home or self-care (01) | LOC: RAD-FRANK 13:20 | PROVIDERS: ATTEND Nurse Practitioner Family | DX: R05.3 Chronic cough (principal) | CPT/HCPCS: 71046 ==

== ENCOUNTER 2021-10-05 09:47 | Outpatient (CLI) | payer MEDICARE, MEDICAID | END 2021-10-05 09:48 | disposition home or self-care (01) | LOC: RAD 09:47 | PROVIDERS: ATTEND Internal Medicine Critical Care Medicine | DX: R06.00 Dyspnea, unspecified (principal); I51.7 Cardiomegaly; I28.8 Other diseases of pulmonary vessels | CPT/HCPCS: 71046 ==

== ENCOUNTER 2021-11-01 11:16 | Outpatient (CLI) | payer MEDICARE, MEDICAID ==
[2021-11-01 12:52] LABS: #Basophils 0.1 10x3/uL (0.0-0.2); #Eosinphils 0.1 10x3/uL (0.0-0.5); #Monocytes 0.6 10x3/uL (0.0-1.1); #Neutrophils 4.9 10x3/uL (1.5-8.4); %Basophils 0.8 % (0.0-2.0); %Eosinophils 1.4 % (0.0-6.0); %Lymphocytes 27.7 % (18.0-47.0); %Monocytes 7.4 % (0.0-10.0); %Neutrophils 62.4 % (40.0-75.0); Hemoglobin 11.4 g/dL (12.0-15.5); Mean Corpuscular HGB CONC 30.6 g/dL (32.0-36.0); Mean Corpuscular Hemoglobin 23.7 pg (27.0-33.0); Mean Corpuscular Volume 77.3 fl (81.6-98.3); Mean Platelet Volume 9.8 fl (7.4-10.4); Platelet Count 268 10x3/uL (150-450); RBC Distribution Width 15.6 % (11.5-14.5); Red Blood Cell (RBC) Count 4.81 10x6/uL (3.90-5.03); White Blood Cell (WBC) Count 7.8 10x3/uL (3.5-10.5)
[2021-11-01 13:12] LABS: ALT (SGPT) 23 U/L (8-55); AST (SGOT) 16 U/L (5-34); Alkaline Phosphatase 120 U/L (40-110); Anion Gap 13 mmol/L (10-20); BUN (Urea Nitrogen) 11 mg/dL (9.8-20.1); Bilirubin, Total 0.9 mg/dL (0.2-1.2); Calc. Creatinine Clearance 0 mL/min (70-130); Carbon Dioxide 25 mmol/L (22-29); Chloride 105 mmol/L (98-107); Globulin 3.3 g/dL (2.4-3.5); Glucose 172 mg/dL (70-105); Potassium 3.8 mmol/L (3.5-5.1); Protein, Total 7.3 g/dL (6.0-8.3); Sodium 139 mmol/L (136-145)
[2021-11-01 23:44] LABS: SARS-CoV-2 PCR by NAA Not Detected (NotDetected)
== END 2021-11-01 11:17 | disposition home or self-care (01) ==
LOC: LABBT 11:16
PROVIDERS: ATTEND Surgery
DX: Z01.812 Encounter for preprocedural laboratory examination (principal); K60.3 Anal fistula; Z20.822 Contact with and (suspected) exposure to COVID-19
CPT/HCPCS: 80053; 85025; U0003; U0005

== ENCOUNTER 2021-11-03 09:40 | Day surgery (SDC) | payer MEDICARE, MEDICAID ==
[2021-11-01 11:16] VITALS: BMI 39.1
[2021-11-03] MEDS ORDERED: Famotidine/PF 20 mg/2ml Vial ONE (11:42)
[2021-11-03] MEDS ORDERED: Bupivacaine 0.25% HCL 30 ML VIAL ONE (12:04)
[2021-11-03] MEDS ORDERED: Lidocaine 2% Jelly 5 ML TUBE ONE (12:04)
[2021-11-03] MEDS ORDERED: Xylocaine 1% w/ Epi 1:100K 10 ML VIAL ONE (12:04)
[2021-11-03] MEDS ORDERED: Fentanyl 250 MCG/5 ML VIAL ONE ×2 (12:08→13:39)
[2021-11-03] MEDS ORDERED: Midazolam HCl 2 mg/2 ml Vial ONE (12:17)
[2021-11-03] MEDS ORDERED: Ondansetron PF 4 MG/2 ML Vial ONE (12:35)
[2021-11-03] MEDS ORDERED: Succinylcholine 200 MG/10 ml SYRINGE FS ONE (12:35)
[2021-11-03] MEDS ORDERED: Dexamethasone 20 MG/5 ML VIAL ONE (12:35)
[2021-11-03] MEDS ORDERED: Albuterol Sulfate HFA (OR ONLY) ONE (12:35)
[2021-11-03] MEDS ORDERED: PHENYLEPHRINE-NS 100 MCG/ML 10 ML SYRINGE ONE (12:35)
[2021-11-03] MEDS ORDERED: PROPOFOL 200 MG/20 ML VIAL ONE (12:35)
[2021-11-03] MEDS ORDERED: Lidocaine 1% PF 5 ML VIAL ONE (12:35)
== END 2021-11-03 15:00 | disposition home or self-care (01) ==
LOC: SDC 09:40
PROVIDERS: ATTEND Surgery
PROC: 0H88XZZ Division of Buttock Skin, External Approach (ICD-10-PCS; principal; 2021-11-03)
DX: K60.3 Anal fistula (principal); I10 Essential (primary) hypertension; E11.9 Type 2 diabetes mellitus without complications; E78.5 Hyperlipidemia, unspecified; E66.9 Obesity, unspecified; Z68.39 Body mass index [BMI] 39.0-39.9, adult; Z79.82 Long term (current) use of aspirin; Z79.84 Long term (current) use of oral hypoglycemic drugs; Z79.899 Other long term (current) drug therapy; Z88.2 Allergy status to sulfonamides; Z88.6 Allergy status to analgesic agent; Z88.8 Allergy status to other drugs, medicaments and biological substances
CPT/HCPCS: J1100; J2250; J2405; J2704; J3010; S0020; S0028

== ENCOUNTER 2021-12-09 10:42 | Outpatient (CLI) | payer MEDICARE, MEDICAID ==
[2021-12-09 11:31] LABS: Estimated GFR-MDRD - POC Greater than 90
[2021-12-09] MEDS ORDERED: Iopamidol-370 76% 500 ML 1 ML ONE (12:34)
== END 2021-12-09 10:43 | disposition home or self-care (01) ==
LOC: BICCT 10:42
PROVIDERS: ATTEND Internal Medicine Medical Oncology
DX: R59.0 Localized enlarged lymph nodes (principal)
CPT/HCPCS: 70491; 71260; 82565; Q9967

== ENCOUNTER 2021-12-09 10:47 | Outpatient (CLI) | payer MEDICARE, MEDICAID | END 2021-12-09 10:48 | disposition home or self-care (01) | LOC: BICRAD 10:47 | PROVIDERS: ATTEND Surgery | DX: R07.9 Chest pain, unspecified (principal) | CPT/HCPCS: 74022 ==

== ENCOUNTER 2022-01-13 10:07 | Outpatient (CLI) | payer OTHER | END 2022-01-13 10:08 | disposition home or self-care (01) | LOC: BICMAMMO 10:07 | PROVIDERS: ATTEND Internal Medicine Medical Oncology | DX: Z12.31 Encounter for screening mammogram for malignant neoplasm of breast (principal); Z85.3 Personal history of malignant neoplasm of breast; Z98.890 Other specified postprocedural states | CPT/HCPCS: 77067 ==

== ENCOUNTER 2022-02-13 15:26 | Outpatient (CLI) | payer MEDICARE, MEDICAID | END 2022-02-13 15:27 | disposition home or self-care (01) | LOC: RAD-FRANK 15:26 | PROVIDERS: ATTEND Family Medicine | DX: M25.531 Pain in right wrist (principal); M79.641 Pain in right hand ==

== ENCOUNTER 2022-02-16 08:50 | Outpatient (CLI) | payer MEDICARE, MEDICAID | END 2022-02-16 08:51 | disposition home or self-care (01) | LOC: LABBT 08:50 | PROVIDERS: ATTEND Internal Medicine | DX: K21.9 Gastro-esophageal reflux disease without esophagitis (principal); D12.6 Benign neoplasm of colon, unspecified; R13.10 Dysphagia, unspecified; K62.89 Other specified diseases of anus and rectum; Z20.822 Contact with and (suspected) exposure to COVID-19 | CPT/HCPCS: U0003; U0005 ==

== ENCOUNTER 2022-02-21 07:09 | Day surgery (SDC) | payer MEDICARE, MEDICAID ==
[2022-02-17 14:53] VITALS: BMI 39.9
[2022-02-21] MEDS ORDERED: Lidocaine 1% PF 5 ML VIAL ONE (10:42)
[2022-02-21] MEDS ORDERED: PROPOFOL 200 MG/20 ML VIAL ONE (10:42)
== END 2022-02-21 12:18 | disposition home or self-care (01) ==
LOC: SDC 07:09
PROVIDERS: ATTEND Internal Medicine
PROC: 0DBP8ZX Excision of Rectum, Via Natural or Artificial Opening Endoscopic, Diagnostic (ICD-10-PCS; principal; 2022-02-21)
PROC: 0DBL8ZX Excision of Transverse Colon, Via Natural or Artificial Opening Endoscopic, Diagnostic (ICD-10-PCS; 2022-02-21)
DX: Z12.11 Encounter for screening for malignant neoplasm of colon (principal); D12.3 Benign neoplasm of transverse colon; D12.8 Benign neoplasm of rectum; K64.4 Residual hemorrhoidal skin tags; K64.8 Other hemorrhoids; K60.3 Anal fistula; Z88.8 Allergy status to other drugs, medicaments and biological substances; Z86.010 Personal history of colon polyps; Z79.82 Long term (current) use of aspirin; Z79.84 Long term (current) use of oral hypoglycemic drugs; Z79.899 Other long term (current) drug therapy; Z88.2 Allergy status to sulfonamides; Z88.6 Allergy status to analgesic agent
CPT/HCPCS: 88305; J2704; J7620

== ENCOUNTER 2022-03-07 09:50 | Day surgery (SDC) | payer MEDICARE, MEDICAID ==
[2022-03-06 15:55] VITALS: BMI 39.9
[2022-03-07] MEDS ORDERED: Sodium Bicarbonate 2.5 MEQ/5 ML VIAL ONE (11:20)
[2022-03-07] MEDS ORDERED: Lidocaine 1% PF 5 ML VIAL ONE (11:20)
[2022-03-07 12:01] VITALS: BP 137/81; TEMP 98.3
== END 2022-03-07 12:30 | disposition home or self-care (01) ==
LOC: ULT 09:50
PROVIDERS: ATTEND Student in an Organized Health Care Education/Training Program
PROC: 0G9H3ZX Drainage of Right Thyroid Gland Lobe, Percutaneous Approach, Diagnostic (ICD-10-PCS; principal; 2022-03-07)
DX: E04.1 Nontoxic single thyroid nodule (principal); J38.7 Other diseases of larynx; F45.8 Other somatoform disorders; I10 Essential (primary) hypertension; E11.9 Type 2 diabetes mellitus without complications; E78.5 Hyperlipidemia, unspecified; M19.90 Unspecified osteoarthritis, unspecified site; G89.29 Other chronic pain; M54.50 Low back pain, unspecified; K21.9 Gastro-esophageal reflux disease without esophagitis; E66.9 Obesity, unspecified; Z68.39 Body mass index [BMI] 39.0-39.9, adult; Z79.82 Long term (current) use of aspirin; Z79.84 Long term (current) use of oral hypoglycemic drugs; Z79.899 Other long term (current) drug therapy; Z88.2 Allergy status to sulfonamides; Z88.6 Allergy status to analgesic agent; Z88.8 Allergy status to other drugs, medicaments and biological substances
CPT/HCPCS: 10005; 88173

== ENCOUNTER 2022-03-23 09:23 | Outpatient (CLI) | payer MEDICARE, MEDICAID ==
[2022-03-23] MEDS ORDERED: Iopamidol 370 76% 100 ML VIAL ONE (13:32)
== END 2022-03-23 09:24 | disposition home or self-care (01) ==
LOC: BICCT 09:23
PROVIDERS: ATTEND Internal Medicine Critical Care Medicine
DX: D86.9 Sarcoidosis, unspecified (principal); R59.0 Localized enlarged lymph nodes; K44.9 Diaphragmatic hernia without obstruction or gangrene; R91.8 Other nonspecific abnormal finding of lung field
CPT/HCPCS: 71260; 82565; Q9967

== ENCOUNTER 2022-06-21 13:16 | Emergency (ER) | payer MEDICARE, OTHER ==
[2022-06-21 14:11] LABS: #Eosinphils 0.1 thou/uL (0.0-0.7); #Lymphocytes 2.1 thou/uL (1.20-3.40); #Monocytes 0.6 thou/uL (0.11-0.59); #Neutrophils 4.9 thou/uL (1.40-6.50); %Basophils 0.4 % (0.0-1.0); %Eosinophils 1.6 % (0.0-10.0); %Lymphocytes 27.2 % (21.0-51.0); %Monocytes 7.6 % (0.0-10.0); %Neutrophils 63.2 % (42.0-75.0); Hemoglobin 11.4 g/dL (12.0-16.0); Mean Corpuscular HGB CONC 31.9 g/dL (32.0-36.0); Mean Corpuscular Hemoglobin 26.1 pg (27.0-31.0); Mean Corpuscular Volume 81.9 fL (78.0-98.0); Mean Platelet Volume 7.2 fL (7.4-10.4); Platelet Count 248 thou/uL (130-400); Red Blood Cell (RBC) Count 4.38 mill/uL (4.20-5.40); White Blood Cell (WBC) Count 7.7 thou/uL (4.8-10.8)
[2022-06-21 14:29] LABS: ALT (SGPT) 18 U/L (8-55); AST (SGOT) 21 U/L (5-34); Albumin 4.2 g/dL (3.5-5.0); Alkaline Phosphatase 120 U/L (40-110); Anion Gap 13 mmol/L (10-20); BUN (Urea Nitrogen) 15 mg/dL (9.8-20.1); Bilirubin, Total 0.5 mg/dL (0.2-1.2); Calc. Creatinine Clearance 0 mL/min (70-130); Calcium 9.3 mg/dL (7.8-10.44); Carbon Dioxide 27 mmol/L (22-29); Chloride 105 mmol/L (98-107); Estimated GFR 73; Globulin 3.3 g/dL (2.4-3.5); Glucose 109 mg/dL (70-105); Lipase 17 U/L (8-78); Protein, Total 7.5 g/dL (6.0-8.3); Sodium 141 mmol/L (136-145)
[2022-06-21] MEDS ORDERED: Morphine 4 MG/ML VIAL ONE ×2 (17:31→19:59)
[2022-06-21] MEDS ORDERED: Ondansetron PF 4 MG/2 ML Vial ONE (17:31)
[2022-06-21] MEDS ORDERED: Lidocaine Viscous Sol 2% 15 ml UD Cup ONE (19:59)
[2022-06-21] MEDS ORDERED: Mag-Al 1200 mg/1200 mg/30 ML UDCUP ONE (19:59)
== END 2022-06-21 20:27 | disposition home or self-care (01) ==
LOC: ERS 13:16
DX: R07.89 Other chest pain (principal); K44.9 Diaphragmatic hernia without obstruction or gangrene; E11.9 Type 2 diabetes mellitus without complications; K21.9 Gastro-esophageal reflux disease without esophagitis; I10 Essential (primary) hypertension; E78.5 Hyperlipidemia, unspecified; M19.90 Unspecified osteoarthritis, unspecified site; M79.7 Fibromyalgia; Z85.3 Personal history of malignant neoplasm of breast; Z79.84 Long term (current) use of oral hypoglycemic drugs; Z79.899 Other long term (current) drug therapy
CPT/HCPCS: 36415; 71045; 80053; 83690; 83880; 84484; 85025; 85379; 93005; 94760; 96374; 96375; 96376; J2270; J2405

== ENCOUNTER 2022-07-13 09:29 | Outpatient (CLI) | payer MEDICARE, OTHER | END 2022-07-13 09:30 | disposition home or self-care (01) | LOC: RAD 09:29 | PROVIDERS: ATTEND Internal Medicine Critical Care Medicine | DX: R06.00 Dyspnea, unspecified (principal) | CPT/HCPCS: 71046 ==

== ENCOUNTER 2022-08-10 09:44 | Outpatient (CLI) | payer MEDICARE, OTHER | END 2022-08-10 09:45 | disposition home or self-care (01) | LOC: DTY/OP 09:44 | PROVIDERS: ATTEND Surgery | DX: E66.01 Morbid (severe) obesity due to excess calories (principal) | CPT/HCPCS: 97802 ==

== ENCOUNTER 2022-10-03 08:09 | Outpatient (CLI) | payer MEDICARE, OTHER | END 2022-10-03 08:10 | disposition home or self-care (01) | LOC: BICCT 08:09 | PROVIDERS: ATTEND Internal Medicine Critical Care Medicine | DX: D86.9 Sarcoidosis, unspecified (principal); M61.48 Other calcification of muscle, other site; R59.9 Enlarged lymph nodes, unspecified | CPT/HCPCS: 71250 ==

== ENCOUNTER 2022-10-30 10:28 | Outpatient (CLI) | payer MEDICARE, OTHER ==
[2022-10-30 11:25] LABS: #Eosinphils 0.1 10x3/uL (0.0-0.5); #Monocytes 0.7 10x3/uL (0.0-1.1); #Neutrophils 4.7 10x3/uL (1.5-8.4); %Basophils 0.4 % (0.0-2.0); %Eosinophils 1.5 % (0.0-6.0); %Lymphocytes 26.3 % (18.0-47.0); %Monocytes 8.7 % (0.0-10.0); %Neutrophils 62.7 % (40.0-75.0); Hemoglobin 11.7 g/dL (12.0-15.5); Mean Corpuscular HGB CONC 31.6 g/dL (32.0-36.0); Mean Corpuscular Hemoglobin 25.3 pg (27.0-33.0); Mean Corpuscular Volume 79.9 fl (81.6-98.3); Mean Platelet Volume 9.6 fl (7.4-10.4); Platelet Count 286 10x3/uL (150-450); RBC Distribution Width 14.2 % (11.5-14.5); Red Blood Cell (RBC) Count 4.63 10x6/uL (3.90-5.03); White Blood Cell (WBC) Count 7.5 10x3/uL (3.5-10.5)
[2022-10-30 12:04] LABS: Anion Gap 14 mmol/L (10-20); BUN (Urea Nitrogen) 14 mg/dL (9.8-20.1); Calc. Creatinine Clearance 0 mL/min (70-130); Calcium 9.6 mg/dL (7.8-10.44); Carbon Dioxide 27 mmol/L (22-29); Chloride 103 mmol/L (98-107); Estimated GFR 70; Glucose 152 mg/dL (70-105); Sodium 140 mmol/L (136-145)
== END 2022-10-30 10:29 | disposition home or self-care (01) ==
LOC: LABBT 10:28
PROVIDERS: ATTEND Surgery
DX: Z01.818 Encounter for other preprocedural examination (principal)
CPT/HCPCS: 80048; 85025; 93005; 93010

== ENCOUNTER 2022-11-02 05:49 | Observation (INO) | payer MEDICARE, OTHER ==
[2022-10-31 14:00] VITALS: BMI 39.9
[2022-11-02] MEDS ORDERED: fentaNYL PF 100 MCG/2 ML SYRINGE ONE (06:15)
[2022-11-02] MEDS ORDERED: SUGAMMADEX SODIUM 200 MG/2 ML VIAL ONE (06:16)
[2022-11-02] MEDS ORDERED: Dexmedetomidine 200 MCG/2 ML VIAL ONE (06:37)
[2022-11-02] MEDS ORDERED: Albuterol HFA (OR) 200 PUFF INH ONE ×2 (06:37→07:47)
[2022-11-02] MEDS ORDERED: Bupivacaine/Epinephrine 0.25% 30 ML VIAL ONE ×3 (06:43→09:31)
[2022-11-02] MEDS ORDERED: CEFAZOLIN 2 GM VIAL ONE (07:27)
[2022-11-02] MEDS ORDERED: Sodium Chloride 0.9% 100 ML ONE (07:27)
[2022-11-02] MEDS ORDERED: Succinylcholine Chloride 100 MG/5 ML SYRINGE FS ONE (07:47)
[2022-11-02] MEDS ORDERED: PROPOFOL 200 MG/20 ML VIAL ONE (07:47)
[2022-11-02] MEDS ORDERED: Lidocaine 1% PF 5 ML VIAL ONE (07:47)
[2022-11-02] MEDS ORDERED: Rocuronium Bromide 10 MG/ML (10ML VIAL) ONE (07:47)
[2022-11-02] MEDS ORDERED: ePHEDrine 50 MG/ML VIAL ONE (07:47)
[2022-11-02] MEDS ORDERED: NEOSTIGMINE 3 MG/3 ML SYR 3 MG/3 ML SYRINGE ONE (07:47)
[2022-11-02] MEDS ORDERED: Ondansetron PF 4 MG/2 ML Vial ONE (07:47)
[2022-11-02] MEDS ORDERED: PHENYLEPHRINE-NS 100 MCG/ML 10 ML SYRINGE ONE (07:47)
[2022-11-02] MEDS ORDERED: Dexamethasone 20 MG/5 ML VIAL ONE (07:47)
[2022-11-02] MEDS ORDERED: Glycopyrrolate 0.2 MG/ML 5 ML SYRINGE ONE (07:47)
[2022-11-02 08:13] LABS: SARS-CoV-2 NAA Rapid Test Not Detected (NotDetected)
[2022-11-02] MEDS ORDERED: Fentanyl 100 MCG/2 ML VIAL ONE ×2 (10:04→10:21)
[2022-11-02] MEDS ORDERED: Albuterol 200 PUFF (6.7GM INHALER) INH PRN (10:13)
[2022-11-02] MEDS ORDERED: Promethazine HCl 25 MG/ML VIAL IM PRN (10:13)
[2022-11-02] MEDS ORDERED: Ipratropium/Albuterol 3 ML NEB NEB PRN (10:13)
[2022-11-02] MEDS ORDERED: hydrALAZINE 20 MG/ML VIAL SLOW IVP PRN (10:13)
[2022-11-02] MEDS ORDERED: Morphine 4 MG/ML VIAL SLOW IVP PRN (10:13)
[2022-11-02] MEDS ORDERED: Ondansetron PF 4 MG/2 ML Vial IVP PRN (10:13)
[2022-11-02] MEDS ORDERED: Dextrose 50% Abboject 50 ML SYRINGE SLOW IVP PRN (10:13)
[2022-11-02] MEDS ORDERED: Dextrose 5% in Water 1,000 ML IV PRN (10:13)
[2022-11-02] MEDS ORDERED: Non-Formulary Medication 1 EACH PO PRN (10:32)
[2022-11-02] MEDS ORDERED: Promethazine HCl 25 MG/ML VIAL IM/IV PRN (10:45)
[2022-11-02] MEDS ORDERED: Ondansetron HCl/PF 4 MG/2 ML Vial IVP PRN (10:45)
[2022-11-02] MEDS: Sodium Chloride 0.9% 1,000 ML IV SCH ×2 (12:12→16:07)
[2022-11-02] MEDS: Hydrocodone-Acetamin 15 ML UDCUP PO PRN (16:07)
[2022-11-02] MEDS: Famotidine/PF 20 mg/2ml Vial SLOW IVP SCH (20:46)
[2022-11-02] MEDS: Famotidine 20 MG TAB PO SCH (20:46)
[2022-11-03 05:30] LABS: Hemoglobin 10.5 g/dL (12.0-16.0); Mean Corpuscular HGB CONC 31.2 g/dL (32.0-36.0); Mean Corpuscular Hemoglobin 25.9 pg (27.0-31.0); Mean Platelet Volume 7.5 fL (7.4-10.4); Platelet Count 216 10x3/uL (130-400); RBC Distribution Width 13.1 % (11.5-14.5); Red Blood Cell (RBC) Count 4.07 mill/uL (4.20-5.40); White Blood Cell (WBC) Count 9.5 10x3/uL (4.8-10.8)
[2022-11-03 05:42] LABS: Anion Gap 10 mmol/L (10-20); BUN (Urea Nitrogen) 12 mg/dL (9.8-20.1); Calc. Creatinine Clearance 149 mL/min (70-130); Calcium 8.8 mg/dL (7.8-10.44); Carbon Dioxide 24 mmol/L (22-29); Chloride 110 mmol/L (98-107); Estimated GFR 100; Glucose 128 mg/dL (70-105); Potassium 3.7 mmol/L (3.5-5.1); Sodium 140 mmol/L (136-145)
[2022-11-03 05:52] LABS: Band 2 % (5-11); Lymphocytes 16 % (21-51); MDiff Complete? YES; Monocytes 8 % (0-10); Neutrophil 74 % (42-75)
[2022-11-03] MEDS: Famotidine/PF 20 mg/2ml Vial SLOW IVP SCH (08:38)
[2022-11-03] MEDS: Famotidine 20 MG TAB PO SCH (08:38)
[2022-11-03] MEDS ORDERED: FLU VACC QS2022-23(6MOS UP)/PF 60 MCG/0.5 ML SYRINGE IM ONE (09:00)
[2022-11-03] MEDS ORDERED: Amlodipine 10 MG TAB PO SCH (09:00)
[2022-11-03] MEDS ORDERED: Furosemide 20 MG TAB PO SCH (09:00)
[2022-11-03] MEDS ORDERED: [UNRECOGNIZED DRUG - OTHER] PO SCH (09:00)
[2022-11-03] MEDS ORDERED: EZETIMIBE PO SCH (09:00)
[2022-11-03] MEDS ORDERED: BEMPEDOIC ACID PO SCH (09:00)
[2022-11-03] MEDS ORDERED: Bempedoic Acid/Ezetimibe [Nexlizet 180-10 Mg Tablet] PO SCH (09:00)
[2022-11-03] MEDS: Hydrocodone-Acetamin 15 ML UDCUP PO PRN (15:07)
[2022-11-03 16:43] VITALS: BP 134/85; TEMP 98.6
== END 2022-11-03 17:59 | disposition home or self-care (01) ==
LOC: SDC 05:49 → SURG A 13:50
PROVIDERS: ADMIT Surgery; ATTEND Surgery
PROC: 0BQT4ZZ Repair Diaphragm, Percutaneous Endoscopic Approach (ICD-10-PCS; principal; 2022-11-02)
PROC: 8E0W4CZ Robotic Assisted Procedure of Trunk Region, Percutaneous Endoscopic Approach (ICD-10-PCS; 2022-11-02)
DX: K44.9 Diaphragmatic hernia without obstruction or gangrene (principal); I10 Essential (primary) hypertension; E11.9 Type 2 diabetes mellitus without complications; E78.5 Hyperlipidemia, unspecified; G89.29 Other chronic pain; M54.50 Low back pain, unspecified; K21.9 Gastro-esophageal reflux disease without esophagitis; D86.9 Sarcoidosis, unspecified; M79.7 Fibromyalgia; E66.9 Obesity, unspecified; Z68.39 Body mass index [BMI] 39.0-39.9, adult; Z79.82 Long term (current) use of aspirin; Z79.84 Long term (current) use of oral hypoglycemic drugs; Z79.85 Long-term (current) use of injectable non-insulin antidiabetic drugs; Z79.899 Other long term (current) drug therapy; Z88.2 Allergy status to sulfonamides; Z88.6 Allergy status to analgesic agent; Z88.8 Allergy status to other drugs, medicaments and biological substances; Z20.822 Contact with and (suspected) exposure to COVID-19
CPT/HCPCS: 43281; 80048; 85025; 96372; 96374; 96375; G0378 ×2; U0002; 36415; J1100; J1650; J2405; J2704; J3010; J3490; J7050; S0028

== ENCOUNTER 2022-11-08 11:56 | Day surgery (SDC) | payer MEDICARE, MEDICAID ==
[2022-11-08] MEDS ORDERED: Ondansetron PF 4 MG/2 ML Vial IVP PRN (12:08)
[2022-11-08] MEDS ORDERED: Sodium Chloride 0.9% 1,000 ML IV SCH (13:00)
[2022-11-08] MEDS ORDERED: Multivitamins, Adult 10 ML, Thiamine HCl 100 MG in Sodium Chloride 0.9% 1,000 ML IV SCH (13:00)
[2022-11-08 15:15] VITALS: BP 108/70; TEMP 98.4
== END 2022-11-08 15:20 | disposition home or self-care (01) ==
LOC: ONC/OP 11:56
PROVIDERS: ATTEND Surgery
DX: E86.0 Dehydration (principal); Z88.2 Allergy status to sulfonamides; Z88.6 Allergy status to analgesic agent; Z88.8 Allergy status to other drugs, medicaments and biological substances
CPT/HCPCS: 96361; 96365; J3411; J7050

== ENCOUNTER 2023-03-21 10:49 | Outpatient (CLI) | payer MEDICARE, MEDICAID | END 2023-03-21 10:50 | disposition home or self-care (01) | LOC: BICMAMMO 10:49 | PROVIDERS: ATTEND Internal Medicine Medical Oncology | DX: Z12.31 Encounter for screening mammogram for malignant neoplasm of breast (principal); Z85.3 Personal history of malignant neoplasm of breast; Z98.890 Other specified postprocedural states | CPT/HCPCS: 77063; 77067 ==

== ENCOUNTER 2023-04-19 14:37 | Outpatient (CLI) | payer MEDICARE, OTHER | END 2023-04-19 14:38 | disposition home or self-care (01) | LOC: ULT 14:37 | PROVIDERS: ATTEND Student in an Organized Health Care Education/Training Program | DX: E04.2 Nontoxic multinodular goiter (principal) | CPT/HCPCS: 76536 ==

== ENCOUNTER 2023-07-06 11:04 | Emergency (ER) | payer MEDICARE, OTHER ==
[2023-07-06 12:01] LABS: #Basophils 0.1 thou/uL (0.0-0.2); #Eosinphils 0.1 thou/uL (0.0-0.7); #Neutrophils 7.1 thou/uL (1.40-6.50); %Basophils 0.5 % (0.0-1.0); %Lymphocytes 20.1 % (21.0-51.0); %Monocytes 9.4 % (0.0-10.0); %Neutrophils 68.7 % (42.0-75.0); Hematocrit 37.8 % (36.0-47.0); Hemoglobin 11.8 g/dL (12.0-16.0); Mean Corpuscular HGB CONC 31.2 g/dL (32.0-36.0); Mean Corpuscular Hemoglobin 25.5 pg (27.0-31.0); Mean Corpuscular Volume 81.8 fl (78.0-98.0); Platelet Count 272 10x3/uL (130-400); RBC Distribution Width 14.6 % (11.5-14.5); Red Blood Cell (RBC) Count 4.62 mill/uL (4.20-5.40); White Blood Cell (WBC) Count 10.3 10x3/uL (4.8-10.8)
[2023-07-06 12:23] LABS: ALT (SGPT) 18 U/L (8-55); AST (SGOT) 25 U/L (5-34); Albumin 4.3 g/dL (3.5-5.0); Alkaline Phosphatase 115 U/L (40-110); Anion Gap 13 mmol/L (10-20); BUN (Urea Nitrogen) 10 mg/dL (9.8-20.1); Bilirubin, Total 0.4 mg/dL (0.2-1.2); Calc. Creatinine Clearance 0 mL/min (70-130); Carbon Dioxide 27 mmol/L (22-29); Chloride 103 mmol/L (98-107); Estimated GFR 73; Globulin 3.8 g/dL (2.4-3.5); Glucose 114 mg/dL (70-105); Lipase 13 U/L (8-78); Potassium 4.2 mmol/L (3.5-5.1); Protein, Total 8.1 g/dL (6.0-8.3); Sodium 139 mmol/L (136-145)
[2023-07-06 12:27] LABS: Troponin I Less than 0.010 ng/mL (< 0.028)
== END 2023-07-06 14:10 | disposition home or self-care (01) ==
LOC: ERS 11:04
DX: U07.1 COVID-19 (principal); E11.9 Type 2 diabetes mellitus without complications; I10 Essential (primary) hypertension; E78.00 Pure hypercholesterolemia, unspecified; K21.9 Gastro-esophageal reflux disease without esophagitis
CPT/HCPCS: 36415; 71045; 80053; 83605; 83690; 84484; 85025; 85379; 93005

== ENCOUNTER 2024-03-18 09:47 | Outpatient (CLI) | payer MEDICARE, OTHER | END 2024-03-18 09:48 | disposition home or self-care (01) | LOC: RAD 09:47 | PROVIDERS: ATTEND Internal Medicine Critical Care Medicine | DX: R06.00 Dyspnea, unspecified (principal) | CPT/HCPCS: 71046 ==

== ENCOUNTER 2024-05-29 12:53 | Outpatient (CLI) | payer MEDICARE, MEDICAID | END 2024-05-29 12:54 | disposition home or self-care (01) | LOC: BICULT 12:53 | PROVIDERS: ATTEND Student in an Organized Health Care Education/Training Program | DX: E04.2 Nontoxic multinodular goiter (principal) | CPT/HCPCS: 76536 ==

== ENCOUNTER 2024-08-12 10:42 | Outpatient (CLI) | payer MEDICARE, MEDICAID | END 2024-08-12 10:43 | disposition home or self-care (01) | LOC: BICMAMMO 10:42 | PROVIDERS: ATTEND Nurse Practitioner Family | DX: Z12.31 Encounter for screening mammogram for malignant neoplasm of breast (principal); Z80.3 Family history of malignant neoplasm of breast; Z85.3 Personal history of malignant neoplasm of breast; Z98.890 Other specified postprocedural states | CPT/HCPCS: 77063; 77067 ==

== ENCOUNTER 2024-09-11 12:08 | Emergency (ER) | payer MEDICARE, MEDICAID ==
[2024-09-11 12:38] LABS: #Basophils 0.04 10x3/uL (0.0-0.2); %Basophils 0.6 % (0.0-1.0); %Eosinophils 1.5 % (0.0-10.0); %Lymphocytes 31.7 % (21.0-51.0); %Monocytes 7.4 % (0.0-10.0); %Neutrophils 58.6 % (42.0-75.0); Hematocrit 38.3 % (36.0-47.0); Hemoglobin 12.1 g/dL (12.0-16.0); Mean Corpuscular HGB CONC 31.6 g/dL (32.0-36.0); Mean Corpuscular Hemoglobin 25.5 pg (27.0-31.0); Mean Corpuscular Volume 80.6 fL (78.0-98.0); Platelet Count 263 10x3/uL (130-400); Red Blood Cell (RBC) Count 4.75 mill/uL (4.20-5.40)
[2024-09-11 13:06] LABS: ALT (SGPT) 14 U/L (8-55); AST (SGOT) 21 U/L (5-34); Albumin 3.6 g/dL (3.4-4.8); Alkaline Phosphatase 107 U/L (40-110); Anion Gap 14 mmol/L (10-20); BUN (Urea Nitrogen) 9 mg/dL (9.8-20.1); Bilirubin, Total 0.4 mg/dL (0.2-1.2); Calc. Creatinine Clearance 0 mL/min (70-130); Calcium 9.1 mg/dL (7.8-10.44); Carbon Dioxide 25 mmol/L (23-31); Chloride 106 mmol/L (98-107); Estimated GFR 99; Glucose 111 mg/dL (80-115); Potassium 3.8 mmol/L (3.5-5.1); Protein, Total 7.6 g/dL (5.8-8.1); Sodium 141 mmol/L (136-145)
[2024-09-11 13:10] LABS: Troponin I Less than 0.010 ng/mL (< 0.028)
[2024-09-11] MEDS ORDERED: Ketorolac Tromethamine 30 MG (1 mL) VIAL ONE (14:07)
== END 2024-09-11 14:35 | disposition home or self-care (01) ==
LOC: ERS 12:08
DX: R06.00 Dyspnea, unspecified (principal); E11.9 Type 2 diabetes mellitus without complications; I10 Essential (primary) hypertension
CPT/HCPCS: 71045; 80053; 83880; 84484; 85025; 93005; J1885; 36415; 96372

== ENCOUNTER 2025-05-26 09:37 | Outpatient (CLI) | payer MEDICARE, MEDICAID | END 2025-05-26 09:38 | disposition home or self-care (01) | LOC: RAD 09:37 | PROVIDERS: ATTEND Internal Medicine Critical Care Medicine | DX: R06.00 Dyspnea, unspecified (principal) | CPT/HCPCS: 71046 ==

== ENCOUNTER 2025-06-15 08:48 | Outpatient (CLI) | payer MEDICARE, MEDICAID ==
[2025-06-15 09:22] LABS: Estimated GFR - POC 83.0
[2025-06-15] MEDS ORDERED: Iopamidol 370 76% 100 ML VIAL ONE (10:54)
== END 2025-06-15 08:49 | disposition home or self-care (01) ==
LOC: CT 08:48
PROVIDERS: ATTEND Nurse Practitioner Family
DX: S06.0X0A Concussion without loss of consciousness, initial encounter (principal)
CPT/HCPCS: 36000; 36415; 70470; 82565; Q9967